=== PATIENT | male | born 1950 | race Caucasian/White ===

== ENCOUNTER → 2018-07-03 | Outpatient (CLI) | payer MEDICARE | END | disposition home or self-care (01) | LOC: LABWHC1 15:48 | PROVIDERS: ATTEND Internal Medicine Critical Care Medicine | DX: J45.909 Unspecified asthma, uncomplicated (principal) | CPT/HCPCS: 36415; 82785; 85008 ==

== ENCOUNTER 2020-09-11 08:36 | Day surgery (SDC) | payer MEDICARE ==
[~2020-09-11 08:36] MED LIST: LACTATED RINGERS 1,000 ML IV SCH
[2020-09-11] MEDS ORDERED: LIDOCAINE 1% (10MG/ML) FOR IV START INTRADERMA ONE (09:40)
[2020-09-11 09:43] VITALS: TEMP 97.1
[2020-09-11] MEDS ORDERED: PROPOFOL 10 MG/ML 20 ML VIAL IV ONE (09:51)
[2020-09-11] MEDS ORDERED: LIDOCAINE 1% INJ 10MG/ML (20 ML MDV) ONE (09:51)
--- NOTE | 2020-09-11 10:34 | P.PCN ---
Date of Procedure: 09/11/20 Description of Procedure: Brief history: Patient is a pleasant 70-year-old female presenting for outpatient esophagogastroduodenoscopy for evaluation of cirrhosis of the liver and colonoscopy for screening for malignant neoplasm of the colon. Patient has a history of obesity and hypertriglyceridemia. Computed tomography scan from 08/23/19 showed a cirrhotic appearing liver with gastroesophageal varices. He has no prior EGD or colonoscopy. He had no prior history of cirrhosis and full liver serologies were ordered for further evaluation and is pending. Procedure performed: Esophagogastroduodenoscopy with biopsy Colonoscopy with polypectomy Estimated blood loss: Minimal. Preoperative diagnosis: Cirrhosis of the liver, screening for malignant neoplasm in the colon, no prior endoscopic evaluation Anesthesia: MAC Procedure: Or esophageal varices noted After informed consent was obtained from the patient was brought into the endoscopy unit and IV sedation was administered by anesthesia under continuous monitoring. Initially upper endoscopy was done. The Olympus GF 190 video endoscope was inserted into the mouth and esophagus intubated without any difficulty and was gradually advanced into the stomach and duodenum and carefully examined. The bulb and second part of the duodenum appeared normal, with biopsy. The scope was then withdrawn into the stomach adequately insufflated with air and upon careful examination the antrum and body, cardia and fundus appeared normal, except for some mild punctate erythema throughout the stomach consistent with mild portal hypertensive gastropathy, with biopsies of the antrum and body to. In addition in the fundus 2 columns of large varices were seen, without high risk stigmata. The scope was then withdrawn into the esophagus. The GE junction was located at 40 cm to the incisors. It appeared regular with no erythema erosions or ulcerations. Rest of the esophagus appeared normal. Patient tolerated the procedure well. At this time the patient continued to remain sedation. Initial digital rectal examination was normal. Olympus CF 190 video colonoscope was then inserted into the rectum and gradually advanced to the cecum without any difficulty. Careful examination was performed as the scope was gradually being withdrawn. The prep was excellent. The cecum, ascending colon, transverse colon, descending colon, sigmoid colon and rectum appeared normal, except for a flat 13 mm tubulovillous appearing ascending colon polyp removed with cold snare polypectomy. A few scattered diverticula were noted in the sigmoid colon. Retroflexion was performed in the rectum and no lesions were noted, with moderate internal hemorrhoids seen. Patient tolerated the procedure well. Impression: 1. Mild portal hypertensive gastropathy. Isolated gastric varices 1, with 2 columns of varices noted in the fundus of the stomach without any stigmata. Biopsies of the duodenum, antrum and body. 2. Large flat tubulovillous appearing ascending colon polyp removed with cold snare. Mild sigmoid diverticulosis. Internal hemorrhoids. Recommendations: Findings of this examination were discussed with the patient as well as His family. Okay to resume diet. Okay to resume medications. Await pathology from biopsies and polypectomy. Recommend repeat colonoscopy in 3 years for large polyp, pending pathology from polypectomy. Recommend referral to a tertiary center for evaluation of gastric varices and possible intervention BRTO versus TIPS versus endoscopic as per their discretion, with referral sent [facility] today.
[2020-09-11 10:46] VITALS: RESP 16
[2020-09-11 10:55] VITALS: BP 131/81; PULSE 86
== END 2020-09-11 11:22 | disposition home or self-care (01) ==
LOC: ORWHC2ENDO 08:36
PROVIDERS: ATTEND Internal Medicine
DX: Z12.11 Encounter for screening for malignant neoplasm of colon (principal); D12.2 Benign neoplasm of ascending colon; K29.80 Duodenitis without bleeding; D72.820 Lymphocytosis (symptomatic); K64.8 Other hemorrhoids; K29.50 Unspecified chronic gastritis without bleeding; K57.30 Diverticulosis of large intestine without perforation or abscess without bleeding; I86.4 Gastric varices; E78.1 Pure hyperglyceridemia; E66.9 Obesity, unspecified; Z68.34 Body mass index [BMI] 34.0-34.9, adult; Z98.890 Other specified postprocedural states; J45.909 Unspecified asthma, uncomplicated; M19.90 Unspecified osteoarthritis, unspecified site; Z79.899 Other long term (current) drug therapy; Z88.6 Allergy status to analgesic agent
CPT/HCPCS: 88305; 45385; 43239; J2001; J2704

== ENCOUNTER → 2020-09-12 | Outpatient (CLI) | payer MEDICARE ==
--- NOTE | 2020-09-13 03:13 | MR ---
EXAMINATION TYPE: MR brain wo/w con DATE OF EXAM: 09/12/2020 COMPARISON: None HISTORY: Pressure in head, bitemporal hemianopsia. CONTRAST: Standard multiplanar, multisequence MRI departmental protocol utilizing 11.5 mL intravenous Gadavist gadolinium contrast. There is some cerebral cortical atrophy. There is no mass effect nor midline shift. There is no sign of intracranial hemorrhage. Ventricles are slightly enlarged. The brainstem is intact. Corpus callosu m is intact. Sella turcica appears normal. There is some cerebellar atrophy. Diffusion images show no evidence of an acute infarct. There is mildly dilated optic nerve sheaths with fluid. The globes are symmetric. There is no evidenc e of orbital mass. Contrast images show normal enhancement of the venous sinuses. There is no pathologic enhancement. Th e optic chiasm appears normal. Pituitary stalk is in the midline. IMPRESSION: Cerebral atrophy. Mild hydrocephalus. Increased optic nerve sheath fluid consistent with increased in tracranial pressure.
== END | disposition home or self-care (01) ==
LOC: RADMRIMAIN 16:13
PROVIDERS: ATTEND Family Medicine
DX: G31.9 Degenerative disease of nervous system, unspecified (principal); G91.9 Hydrocephalus, unspecified
CPT/HCPCS: 70553; A9585

== ENCOUNTER 2021-05-01 01:39 | Observation (INO) | payer MEDICARE ==
[2021-05-01 03:09] LABS: Basophils % (A) 1 %; Eosinophils # (A) 0.2 k/uL (0-0.7); Eosinophils % (A) 5 %; HCT 23.4 % (39.0-53.0); HGB 7.5 gm/dL (13.0-17.5); Hypochromasia Marked; Lymphocytes % (A) 28 %; MCH 30.2 pg (25.0-35.0); MCHC 31.9 g/dL (31.0-37.0); MCV 94.8 fL (80.0-100.0); Mean Platelet Volume 9.8; Monocytes # (A) 0.2 k/uL (0-1.0); Monocytes % (A) 6 %; Neutrophils % (A) 57 %; Poikilocytosis Slight; RBC 2.47 m/uL (4.30-5.90); RDW 14.5 % (11.5-15.5); WBC 3.5 k/uL (3.8-10.6)
[2021-05-01 03:11] LABS: ALT 35 U/L (4-49); AST 83 U/L (17-59); African American GFR (CKD) >90 (>60 ml/min/1.73 sqM); Albumin 2.4 g/dL (3.5-5.0); Alkaline Phosphatase 128 U/L (38-126); Anion Gap 3 mmol/L; Blood Urea Nitrogen 13 mg/dL (9-20); Calcium 7.6 mg/dL (8.4-10.2); Carbon Dioxide 24 mmol/L (22-30); Chloride 111 mmol/L (98-107); Glucose 93 mg/dL (74-99); Non-African American GFR(CKD) >90 (>60 ml/min/1.73 sqM); Potassium 3.8 mmol/L (3.5-5.1); Sodium 138 mmol/L (137-145); Total Bilirubin 1.7 mg/dL (0.2-1.3); Total Protein 5.6 g/dL (6.3-8.2)
[2021-05-01 03:12] LABS: INR 1.8 (<1.2); Partial Thromboplastin Time 33.6 sec (22.0-30.0); Prothrombin Time 17.8 sec (9.0-12.0)
[2021-05-01 04:23] LABS: Anisocytosis (M) Present
[2021-05-01] MEDS ORDERED: NALOXONE 0.4 MG/ML 1 ML VIAL IV PRN (04:23)
[2021-05-01 04:24] LABS: Platelet Count 99 k/uL (150-450); Polychromasia Present
[2021-05-01] MEDS ORDERED: LACTULOSE 20 GM/30 ML CUP PO ONE (04:26)
[2021-05-01] MEDS: SODIUM CHLORIDE 0.9% 1,000 ML IV SCH ×2 (05:19→12:53)
--- NOTE | 2021-05-01 07:38 | ED ---
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 Patient had gone to [facility] last night due to having generalized weakness, decreased appetite and some nausea. Patient there was found to have low hemoglobin. They felt that the patient needed to be admitted to have GI consultation and so the transfer the patient here the patient's recent history is notable for having some GI bleeding last week. He had gone to the hospital was found to have hemoglobin 7.7. He was then transferred to [facility], as that facility has a liver transplant team and they wanted him to get onto the transplant list. While the patient was there he had upper and lower endoscopy which did not reveal any bleeding. Patient had gone home on April 28 and then over the course the past day he was feeling increased fatigue and having nausea. MD complaint: other -: days(s) Radiation: none Severity scale (1-10): 0 Quality: cramping Consistency: intermittent Improves with: none Worsens with: none Context: history of GI bleed, liver disease Associated Symptoms: nausea - Related Data Home Medications Medication Instructions Recorded Confirmed Albuterol Inhaler [Ventolin Hfa 1 puff INHALATION DIRECTED PRN 09/10/20 09/10/20 Inhaler] Cholecalciferol [Vitamin D3 (25 1 tab PO DAILY 09/10/20 09/10/20 Mcg = 1000 Iu)] Cyanocobalamin (Vitamin B-12) 1 tab PO DAILY 09/10/20 09/10/20 [Vitamin B-12] Montelukast [Singulair] 10 mg PO HS 09/10/20 09/10/20 Frank[place]-3 Fatty Acids [Frankfort-3] 1 cap PO DAILY 09/10/20 09/10/20 Pantoprazole [Protonix] 40 mg PO QAM 09/10/20 09/10/20 Sucralfate [Carafate] 1 gm PO HS 09/10/20 09/10/20 traZODone HCL [TraZODone HCl] 100 mg PO HS 07/14/21 07/14/21 Allergies Allergy/AdvReac Type Severity Reaction Status Date / Time ibuprofen Allergy Dyspnea Verified 05/01/21 02:10 Review of Systems ROS Statement: Those systems with pertinent positive or pertinent negative responses have been documented in the HPI. ROS Other: All systems not noted in ROS Statement are negative. Constitutional: Denies: fever, chills, weakness Respiratory: Denies: cough, dyspnea Cardiovascular: Reports: edema. Denies: chest pain, palpitations, syncope Gastrointestinal: Reports: nausea. Denies: abdominal pain, vomiting, diarrhea, constipation, melena, hematochezia Genitourinary: Denies: dysuria, hematuria Musculoskeletal: Denies: back pain Skin: Denies: rash Neurological: Denies: headache, weakness, numbness Past Medical History Past Medical History: Hyperlipidemia, Liver Disease Additional Past Medical History / Comment(s): nonalcoholic liver cirrhosis, hydrocephalus History of Any Multi-Drug Resistant Organisms: None Reported Past Surgical History: Hernia Repair, Orthopedic Surgery Additional Past Surgical History / Comment(s): neck surgery Past Anesthesia/Blood Transfusion Reactions: No Reported Reaction Past Psychological History: No Psychological Hx Reported Smoking Status: Never smoker Past Alcohol Use History: None Reported Past Drug Use History: None Reported General Exam Limitations: physical limitation General appearance: alert, in no apparent distress Head exam: Present: atraumatic, normocephalic Eye exam: Present: normal appearance. Absent: scleral icterus, conjunctival injection ENT exam: Present: normal oropharynx Neck exam: Present: normal inspection Respiratory exam: Present: normal lung sounds bilaterally. Absent: respiratory distress, wheezes, rales, rhonchi, stridor Cardiovascular Exam: Present: regular rate, normal rhythm, normal heart sounds. Absent: systolic murmur, diastolic murmur, rubs, gallop GI/Abdominal exam: Present: soft. Absent: distended, tenderness, guarding, rebound, rigid, organomegaly, mass Extremities exam: Present: normal inspection, normal capillary refill. Absent: pedal edema, calf tenderness Back exam: Present: normal inspection. Absent: CVA tenderness (R), CVA tenderness (L) Neurological exam: Present: alert Skin exam: Present: warm, dry, intact, pallor. Absent: rash Course Vital Signs 05/01/21 05/01/21 05/01/21 01:39 02:10 03:10 Temperature 99.4 F Pulse Rate 86 75 81 Respiratory 18 18 18 Rate Blood Pressure 107/72 112/74 104/67 O2 Sat by Pulse 96 Oximetry 05/01/21 04:00 Temperature Pulse Rate 70 Respiratory 18 Rate Blood Pressure 98/60 O2 Sat by Pulse Oximetry Medical Decision Making - Medical Decision Making Patient is 70-year-old man with weakness and fatigue sent here basically to be seen by Dr. Vo who he has seen in the past and he follows with regarding GI bleed and also liver disease. At the other facility, patient's hemoglobin 7.8. Recheck here is essentially unchanged at 7.5. He is not having any symptoms currently other than fatigue. In addition the patient has some hyperammonemia. He is reported to be taking lactulose but still having elevated ammonia. I discussed with patient transferred to [facility] refusing to go there stating that they didn't seem to have much interest in his case and he felt that his care was better here. We'll admit patient to have GI consultation, serial hemoglobins, and additional lactulose for the hyperammonemia. - Lab Data Result diagrams: 05/01/21 02:36 05/01/21 02:35 Lab Results 05/01/21 05/01/21 05/01/21 Range/Units 02:35 02:35 02:35 WBC (3.8-10.6) k/uL RBC (4.30-5.90) m/uL Hgb (13.0-17.5) gm/dL Hct (39.0-53.0) % MCV (80.0-100.0) fL MCH (25.0-35.0) pg MCHC (31.0-37.0) g/dL RDW (11.5-15.5) % Plt Count (150-450) k/uL MPV Neutrophils % % Lymphocytes % % Monocytes % % Eosinophils % % Basophils % % Neutrophils # (1.3-7.7) k/uL Lymphocytes # (1.0-4.8) k/uL Monocytes # (0-1.0) k/uL Eosinophils # (0-0.7) k/uL Basophils # (0-0.2) k/uL Manual Slide Review Polychromasia Hypochromasia Poikilocytosis Anisocytosis (manual) PT 17.8 H (9.0-12.0) sec INR 1.8 H (<1.2) APTT 33.6 H (22.0-30.0) sec Sodium 138 (137-145) mmol/L Potassium 3.8 (3.5-5.1) mmol/L Chloride 111 H (98-107) mmol/L Carbon Dioxide 24 (22-30) mmol/L Anion Gap 3 mmol/L BUN 13 (9-20) mg/dL Creatinine 0.51 L (0.66-1.25) mg/dL Est GFR (CKD-EPI)AfAm >90 (>60 ml/min/1.73 sqM) Est GFR (CKD-EPI)NonAf >90 (>60 ml/min/1.73 sqM) Glucose 93 (74-99) mg/dL Calcium 7.6 L (8.4-10.2) mg/dL Total Bilirubin 1.7 H (0.2-1.3) mg/dL AST 83 H (17-59) U/L ALT 35 (4-49) U/L Alkaline Phosphatase 128 H (38-126) U/L Ammonia 191 H (<30) umol/L Total Protein 5.6 L (6.3-8.2) g/dL Albumin 2.4 L (3.5-5.0) g/dL Blood Type Blood Type Confirm Blood Type Recheck Bld Type Recheck Status Antibody Screen Spec Expiration Date 05/01/21 05/01/21 05/01/21 Range/Units 02:36 03:55 04:00 WBC 3.5 L (3.8-10.6) k/uL RBC 2.47 L (4.30-5.90) m/uL Hgb 7.5 L (13.0-17.5) gm/dL Hct 23.4 L (39.0-53.0) % MCV 94.8 (80.0-100.0) fL MCH 30.2 (25.0-35.0) pg MCHC 31.9 (31.0-37.0) g/dL RDW 14.5 (11.5-15.5) % Plt Count 99 L (150-450) k/uL MPV 9.8 Neutrophils % 57 % Lymphocytes % 28 % Monocytes % 6 % Eosinophils % 5 % Basophils % 1 % Neutrophils # 2.0 (1.3-7.7) k/uL Lymphocytes # 1.0 (1.0-4.8) k/uL Monocytes # 0.2 (0-1.0) k/uL Eosinophils # 0.2 (0-0.7) k/uL Basophils # 0.0 (0-0.2) k/uL Manual Slide Review Performed Polychromasia Present Hypochromasia Marked Poikilocytosis Slight Anisocytosis (manual) Present PT (9.0-12.0) sec INR (<1.2) APTT (22.0-30.0) sec Sodium (137-145) mmol/L Potassium (3.5-5.1) mmol/L Chloride (98-107) mmol/L Carbon Dioxide (22-30) mmol/L Anion Gap mmol/L BUN (9-20) mg/dL Creatinine (0.66-1.25) mg/dL Est GFR (CKD-EPI)AfAm (>60 ml/min/1.73 sqM) Est GFR (CKD-EPI)NonAf (>60 ml/min/1.73 sqM) Glucose (74-99) mg/dL Calcium (8.4-10.2) mg/dL Total Bilirubin (0.2-1.3) mg/dL AST (17-59) U/L ALT (4-49) U/L Alkaline Phosphatase (38-126) U/L Ammonia (<30) umol/L Total Protein (6.3-8.2) g/dL Albumin (3.5-5.0) g/dL Blood Type B Positive Blood Type Confirm B Positive Blood Type Recheck No Previous Record Bld Type Recheck Status CABO Indicated Antibody Screen NEGATIVE Spec Expiration Date 05/04/20212354 Disposition Clinical Impression: Anemia, Hyperammonemia Disposition: ADMITTED IP TO THIS [facility] Condition: Poor Is patient prescribed a controlled substance at d/c from ED?: No
--- NOTE | 2021-05-01 08:09 | P.HPIM ---
<Kulwinder Lipscomb - Last Filed: 05/01/21 12:03> History of Present Illness H&P Date: 05/01/21 History of Presenting Illness: Patient is a very pleasant 70-year-old male with a past medical history of VELAZQUEZ with esophageal and gastric varices. He reports he is under care of hepatolog ist Dr. Dunn at [facility]. Patient presented to [facility]'s emergency department on 04/30/22 with a chief complaint of dizziness, lightheadedness, and hypotension. Patient underwent full evaluation in the emergency department with an EKG which revealed normal sinus rhythm 70 bpm with no noted T-wave or ST abnormalities. Chest x-ray which revealed bibasilar atelectasis and elevation of left hemidiaphragm unchanged from previous examination. Labs revealing pancytopenia with WBC count of 4.3, hemoglobin 7.8, and platelet count of 116. Elevated liver enzymes with ALT 39, AST 87, total bili of 1.8, and alkaline phosphatase 131. Patient also with elevated ammonia levels at 139. Fecal occult obtained and was positive. Patient was transferred to our emergency department for GI bleed and evaluation by gastroenterology. Patient reports that he has had dark-colored stools for the past couple weeks accompanied by intermittent epigastric discomfort/pains. Patient reports he underwent a colonoscopy and upper endoscopy on 04/25/21 at [facility], patient states he was told the results of this showed no active bleeding and he was told that the dark stools were likely secondary to his gastric varices but the bleeding had stopped without intervention. Patient reports currently he feels weak and fatigued but states dizziness and epigastric pain is completely subsided. He denies having any headache, fevers, chills, chest pain, palpitations, shortness of breath, nausea, vomiting, or experiencing increased swelling/weakness/numbness in his extremities. Upon arrival to our emergency department, repeat labs revealed pancytopenia with WBC count of 3.5, hemoglobin of 7.5, and platelet count of 99. Coags also elevated with PT of 17.8, INR 1.8, and PTT 33.6. Liver enzymes remain elevated with total bili of 1.7, AST of 83, ALT 35, alkaline phosphatase of 128. Ammonia also remains elevated at 191. Patient was given lactulose 30 g orally 1 dose and admitted under our services with consult to GI. Review of systems: Pertinent positives and negatives as discussed in HPI, a complete review of systems was performed and all other systems are negative. Physical exam: Vital signs reviewed and stable. General: Nontoxic, no distress and appears stated age. Derm: Skin warm and dry, normal coloration for ethnicity. Head: Atraumatic, normocephalic and symmetric. Eyes: EOMs intact, no lid lag, and anicteric sclera Mouth: no lip lesions, mucus membranes moist Cardiovascular: regular rate and rhythm with normal S1S2, no murmur, positive posterior tibial pulses bilaterally, and cap refill < 2 seconds. Lungs: Respirations even, regular, and unlabored on room air. Lungs CTA bilaterally, no rhonchi, no rales, no wheezing, and no accessory muscle usage. Abdominal: Obese abdomen soft, nontender to palpation Ext: ROM intact. No gross muscle atrophy, no edema, no contractures Neuro: Speech clear, face symmetrical and CN II-XII grossly intact with no noted focal neuro deficits Psych: Alert and oriented to person, place, time, and situation. Appropriate and pleasant affect. Assessment and Plan of Care: GI bleed with reports of melena in patient with known gastric varices resulting from cirrhosis Anemia, acute versus chronic no baseline labs for comparison VELAZQUEZ Hyperammonemia Elevated INR Transaminitis Hyperbilirubinemia -CBC every 6 hours, transfuse as needed for hemoglobin less than 6.5. -GI consult -NPO pending further clearance by GI. -Gentle hydration while nothing by mouth -Protonix 40 mg daily -Continue lactulose 20 gm every 6 hours and rifaximin 550 mg every 12 hours. -Request for records sent to [facility] for recently completed EGD and colonoscopy. -DVT prophylaxis with SCDs Pancytopenia -Likely chronic secondary to VELAZQUEZ, unknown baseline labs. -We will continue to monitor closely with repeat labs. -DVT prophylaxis with SCDs The patient is admitted with an anticipated greater than 2 midnight stay for evaluation of GI bleed CODE STATUS: Full code DVT prophylaxis: SCDs Discussed with: patient and RN Anticipated discharge date: clinical course to determine Anticipated discharge place: Home A total of 50 minutes was spent on the care of this complex patient more than 50% of the time was spent in counseling and care coordination. Past Medical History Past Medical History: Hyperlipidemia, Liver Disease Additional Past Medical History / Comment(s): nonalcoholic liver cirrhosis, hydrocephalus History of Any Multi-Drug Resistant Organisms: None Reported Past Surgical History: Hernia Repair, Orthopedic Surgery Additional Past Surgical History / Comment(s): neck surgery Past Anesthesia/Blood Transfusion Reactions: No Reported Reaction Past Psychological History: No Psychological Hx Reported Smoking Status: Never smoker Past Alcohol Use History: None Reported Past Drug Use History: None Reported Medications and Allergies Home Medications Medication Instructions Recorded Confirmed Type Albuterol Inhaler [Ventolin Hfa 2 puff INHALATION RT-QID PRN 09/10/20 05/01/21 History Inhaler] Cholecalciferol [Vitamin D3 (25 25 mcg PO DAILY 09/10/20 05/01/21 History Mcg = 1000 Iu)] Cyanocobalamin (Vitamin B-12) 1,000 mcg PO DAILY 09/10/20 05/01/21 History [Vitamin B-12] Montelukast [Singulair] 10 mg PO HS 09/10/20 05/01/21 History Pantoprazole [Protonix] 40 mg PO DAILY 09/10/20 05/01/21 History Lactulose 20 gm PO QID 05/01/21 05/01/21 History Rifaximin [Xifaxan] 550 mg PO BID 05/01/21 05/01/21 History Torsemide [Demadex] 5 mg PO BID 05/01/21 05/01/21 History Allergies Allergy/AdvReac Type Severity Reaction Status Date / Time ibuprofen Allergy Severe Anaphylaxis Verified 05/01/21 09:48 garlic Allergy Anaphylaxis Verified 05/01/21 09:48 Physical Exam Vitals: Vital Signs Temp Pulse Pulse Resp BP BP Pulse Ox 05/01/21 07:50 97.5 F L 81 16 102/65 97 05/01/21 07:00 98.4 F 79 18 112/67 97 05/01/21 06:01 18 05/01/21 05:37 97.7 F 81 18 107/68 96 05/01/21 05:28 98.2 F 72 18 101/63 95 05/01/21 04:00 70 18 98/60 05/01/21 03:10 81 18 104/67 05/01/21 02:10 75 18 112/74 05/01/21 01:39 99.4 F 86 18 107/72 96 Intake and Output 0305/01/21 05/01/21 22:59 06:59 14:59 Other: Voiding Method Toilet # Voids 0 Weight 92.986 kg Results CBC & Chem 7: 05/01/21 06:41 05/01/21 02:35 Labs: Abnormal Lab Results - Last 24 Hours (Table) 05/01/21 05/01/21 05/01/21 Range/Units 02:35 02:35 02:35 WBC (3.8-10.6) k/uL RBC (4.30-5.90) m/uL Hgb (13.0-17.5) gm/dL Hct (39.0-53.0) % Plt Count (150-450) k/uL PT 17.8 H (9.0-12.0) sec INR 1.8 H (<1.2) APTT 33.6 H (22.0-30.0) sec Chloride 111 H (98-107) mmol/L Creatinine 0.51 L (0.66-1.25) mg/dL Calcium 7.6 L (8.4-10.2) mg/dL Total Bilirubin 1.7 H (0.2-1.3) mg/dL AST 83 H (17-59) U/L Alkaline Phosphatase 128 H (38-126) U/L Ammonia 191 H (<30) umol/L Total Protein 5.6 L (6.3-8.2) g/dL Albumin 2.4 L (3.5-5.0) g/dL 05/01/21 Range/Units 02:36 WBC 3.5 L (3.8-10.6) k/uL RBC 2.47 L (4.30-5.90) m/uL Hgb 7.5 L (13.0-17.5) gm/dL Hct 23.4 L (39.0-53.0) % Plt Count 99 L (150-450) k/uL PT (9.0-12.0) sec INR (<1.2) APTT (22.0-30.0) sec Chloride (98-107) mmol/L Creatinine (0.66-1.25) mg/dL Calcium (8.4-10.2) mg/dL Total Bilirubin (0.2-1.3) mg/dL AST (17-59) U/L Alkaline Phosphatase (38-126) U/L Ammonia (<30) umol/L Total Protein (6.3-8.2) g/dL Albumin (3.5-5.0) g/dL Thrombosis Risk Factor Assmnt - Choose All That Apply Each Factor Represents 1 point: Obesity (BMI >25) Each Risk Factor Represents 2 Points: Age 61-74 years Thrombosis Risk Factor Assessment Total Risk Factor Score: 3 Thrombosis Risk Factor Assessment Level: Moderate Risk <Gonzalo Dominguez - Last Filed: 05/01/21 16:01> History of Present Illness I reviewed the documentation as provided by the RUFINA above, who is the original author of this note. I agree with the documented assessment and plan, with the following changes: None Physical Exam Osteopathic Statement: *. No significant issues noted on an osteopathic s tructural exam other than those noted in the History and Physical/Consult. Vitals: Vital Signs Temp Pulse Pulse Resp BP BP Pulse Ox 05/01/21 13:36 97.5 F L 81 17 110/71 96 05/01/21 09:26 97.5 F L 81 16 102/65 97 05/01/21 07:50 97.5 F L 81 16 102/65 97 05/01/21 07:00 98.4 F 79 18 112/67 97 05/01/21 06:01 18 05/01/21 05:37 97.7 F 81 18 107/68 96 05/01/21 05:28 98.2 F 72 18 101/63 95 05/01/21 04:00 70 18 98/60 05/01/21 03:10 81 18 104/67 05/01/21 02:10 75 18 112/74 05/01/21 01:39 99.4 F 86 18 107/72 96 Intake and Output 05/01/21 05/01/21 05/01/21 06:59 14:59 22:59 Intake Total 118 Balance 118 Intake: Oral 118 Other: Voiding Method Toilet # Voids 0 3 # Bowel Movements 1 Weight 92.986 kg Results CBC & Chem 7: 05/01/21 14:59 05/01/21 02:35 Labs: Abnormal Lab Results - Last 24 Hours (Table) 05/01/21 05/01/21 05/01/21 Range/Units 02:35 02:35 02:35 WBC (3.8-10.6) k/uL RBC (4.30-5.90) m/uL Hgb (13.0-17.5) gm/dL Hct (39.0-53.0) % MCV (80.0-97.0) fL MCHC (32.0-37.0) g/dL RDW (11.5-14.5) % Plt Count (150-450) k/uL PT 17.8 H (9.0-12.0) sec INR 1.8 H (<1.2) APTT 33.6 H (22.0-30.0) sec Chloride 111 H (98-107) mmol/L Creatinine 0.51 L (0.66-1.25) mg/dL Calcium 7.6 L (8.4-10.2) mg/dL Total Bilirubin 1.7 H (0.2-1.3) mg/dL AST 83 H (17-59) U/L Alkaline Phosphatase 128 H (38-126) U/L Ammonia 191 H (<30) umol/L Total Protein 5.6 L (6.3-8.2) g/dL Albumin 2.4 L (3.5-5.0) g/dL 05/01/21 05/01/21 05/01/21 Range/Units 02:36 06:41 14:59 WBC 3.5 L 3.97 L 3.2 L (3.8-10.6) k/uL RBC 2.47 L 2.63 L 2.56 L (4.30-5.90) m/uL Hgb 7.5 L 7.6 L 7.6 L (13.0-17.5) gm/dL Hct 23.4 L 25.9 L 24.6 L (39.0-53.0) % MCV 98.5 H (80.0-97.0) fL MCHC 29.3 L (32.0-37.0) g/dL RDW 14.6 H (11.5-14.5) % Plt Count 99 L 117 L 100 L (150-450) k/uL PT (9.0-12.0) sec INR (<1.2) APTT (22.0-30.0) sec Chloride (98-107) mmol/L Creatinine (0.66-1.25) mg/dL Calcium (8.4-10.2) mg/dL Total Bilirubin (0.2-1.3) mg/dL AST (17-59) U/L Alkaline Phosphatase (38-126) U/L Ammonia (<30) umol/L Total Protein (6.3-8.2) g/dL Albumin (3.5-5.0) g/dL
[2021-05-01] MEDS: PANTOPRAZOLE 40 MG/10 ML VIAL IV SCH (09:18)
--- NOTE | 2021-05-01 10:52 | P.CONS ---
History of Present Illness - Reason for Consult Consult date: 05/01/21 Anemia Requesting physician: Jesús Herr - Chief Complaint Weakness - History of Present Illness This is 70-year-old male who was a transfer from [facility] for ge neralized weakness and anemia. He has has a history of VELAZQUEZ who had followed with Dr. Huerta. He is now following with [facility] transplant team Dr. Dunn. He states that he had been having black stools a little over a week ago and feeling fatigued and weak, he went down to [facility] and had an upper and lower endoscopy on Tuesday. He states that they did find varices however colonoscopy was normal. He is unsure if they treated the varices with clips. He states he has not had any further black or dark stools since being discharged on Tuesday. He denies any anticoagulation. However he went to his PCPs office for outpatient blood work and then went home and was feeling increased weakness and fatigue. He states that he took his blood pressure at home and it was low so he went to [facility] for further evaluation. Blood work at that time had shown a hemoglobin of 7.8 with a platelet count of 116, he also had an elevated ammonia of 139. The patient states that yesterday he only had a very small bowel movement despite taking his lactulose. He is also on Xifaxan. He continues to state that he has not had any black stool, he has no abdominal pain, nausea or vomiting. He is alert and oriented 3. Reports from [facility] received patient underwent EGD and colonoscopy on 04/25/2021. Colonoscopy had findings of scattered diverticulosis and internal hemorrhoids. EGD showed normal esophagus, type I isolated gastric varices located in the fundus without any stigmata for bleeding, portal hypertensive gastropathy, gastric antral vascular ectasia without bleeding. Review of Systems REVIEW OF SYSTEMS: CARDIOPULMONARY: No chest pain. Shortness of breath with exertion. Gastrointestinal: No abdominal pain. No nausea or vomiting. No hematemesis, coffee-ground emesis. No rectal bleeding, or melena. GENITOURINARY: No dysuria or hematuria. MUSCULOSKELETAL: Reports normal range of motion., Joint pain. SKIN: No rashes. No jaundice. ENDOCRINE: No chills, fevers. No excessive weight gain or loss. No polydipsia or polyuria. PSYCHIATRIC: Unremarkable. NEUROLOGY: No change in mental status. Denies dizziness, headache. ENT: Vision unremarkable. CONSTITUTIONAL: No recent weight loss. No fever, chills, night sweats. Increased weakness and fatigue Past Medical History Past Medical History: Hyperlipidemia, Liver Disease Additional Past Medical History / Comment(s): nonalcoholic liver cirrhosis, hydrocephalus History of Any Multi-Drug Resistant Organisms: None Reported Past Surgical History: Hernia Repair, Orthopedic Surgery Additional Past Surgical History / Comment(s): neck surgery Past Anesthesia/Blood Transfusion Reactions: No Reported Reaction Past Psychological History: No Psychological Hx Reported Smoking Status: Never smoker Past Alcohol Use History: None Reported Past Drug Use History: None Reported Medications and Allergies Home Medications Medication Instructions Recorded Confirmed Type Albuterol Inhaler [Ventolin Hfa 2 puff INHALATION RT-QID PRN 09/10/20 05/01/21 History Inhaler] Cholecalciferol [Vitamin D3 (25 25 mcg PO DAILY 09/10/20 05/01/21 History Mcg = 1000 Iu)] Cyanocobalamin (Vitamin B-12) 1,000 mcg PO DAILY 09/10/20 05/01/21 History [Vitamin B-12] Montelukast [Singulair] 10 mg PO HS 09/10/20 05/01/21 History Pantoprazole [Protonix] 40 mg PO DAILY 09/10/20 05/01/21 History Lactulose 20 gm PO QID 05/01/21 05/01/21 History Rifaximin [Xifaxan] 550 mg PO BID 05/01/21 05/01/21 History Torsemide [Demadex] 5 mg PO BID 05/01/21 05/01/21 History Allergies Allergy/AdvReac Type Severity Reaction Status Date / Time ibuprofen Allergy Severe Anaphylaxis Verified 05/01/21 09:48 garlic Allergy Anaphylaxis Verified 05/01/21 09:48 Physical Exam Vitals: Vital Signs Temp Pulse Pulse Resp BP BP Pulse Ox 05/01/21 07:50 97.5 F L 81 16 102/65 97 05/01/21 07:00 98.4 F 79 18 112/67 97 05/01/21 06:01 18 05/01/21 05:37 97.7 F 81 18 107/68 96 05/01/21 05:28 98.2 F 72 18 101/63 95 05/01/21 04:00 70 18 98/60 05/01/21 03:10 81 18 104/67 05/01/21 02:10 75 18 112/74 05/01/21 01:39 99.4 F 86 18 107/72 96 Intake and Output 04/30/21 05/01/21 05/01/21 22:59 06:59 14:59 Other: Voiding Method Toilet # Voids 0 Weight 92.986 kg General appearance: The patient is alert, oriented, appears in no acute distress. HET: Head is normocephalic and atraumatic. Conjunctiva pink. Sclera anicteric. Neck: Supple without lymphadenopathy. Trachea midline. Heart: S1 S2. Regular rate and rhythm. Lungs: Clear to auscultation. Abdomen: Soft, nontender, nondistended with bowel sounds. No guarding or ri gidity. Skin: No rashes. No jaundice. Extremities: Normal skin color and turgor. No pedal edema. Neurological: No focal deficits. Alert and oriented x3. Results CBC & Chem 7: 05/01/21 06:41 05/01/21 02:35 Labs: Abnormal Lab Results - Last 24 Hours (Table) 05/01/21 05/01/21 05/01/21 Range/Units 02:35 02:35 02:35 WBC (3.8-10.6) k/uL RBC (4.30-5.90) m/uL Hgb (13.0-17.5) gm/dL Hct (39.0-53.0) % Plt Count (150-450) k/uL PT 17.8 H (9.0-12.0) sec INR 1.8 H (<1.2) APTT 33.6 H (22.0-30.0) sec Chloride 111 H (98-107) mmol/L Creatinine 0.51 L (0.66-1.25) mg/dL Calcium 7.6 L (8.4-10.2) mg/dL Total Bilirubin 1.7 H (0.2-1.3) mg/dL AST 83 H (17-59) U/L Alkaline Phosphatase 128 H (38-126) U/L Ammonia 191 H (<30) umol/L Total Protein 5.6 L (6.3-8.2) g/dL Albumin 2.4 L (3.5-5.0) g/dL 05/01/21 Range/Units 02:36 WBC 3.5 L (3.8-10.6) k/uL RBC 2.47 L (4.30-5.90) m/uL Hgb 7.5 L (13.0-17.5) gm/dL Hct 23.4 L (39.0-53.0) % Plt Count 99 L (150-450) k/uL PT (9.0-12.0) sec INR (<1.2) APTT (22.0-30.0) sec Chloride (98-107) mmol/L Creatinine (0.66-1.25) mg/dL Calcium (8.4-10.2) mg/dL Total Bilirubin (0.2-1.3) mg/dL AST (17-59) U/L Alkaline Phosphatase (38-126) U/L Ammonia (<30) umol/L Total Protein (6.3-8.2) g/dL Albumin (3.5-5.0) g/dL Assessment and Plan (1) Anemia Narrative/Plan: This is a pleasant 70-year-old male who follows with gastroenterology for nonalcoholic fatty liver. He is also now following with [facility] transplant team Dr. Dunn. Patient came in as a transfer from [facility] for weakness and fatigue and was found to be anemic. He states he was recently at [facility] last week discharged on Tuesday. He states on April 19 he underwent EGD and colonoscopy. He states the EGD was significant for esophageal varices, however he was unsure of the clipped. Colonoscopy was normal. He had a follow-up appointment with his PCP and had complaints of weakness and fatigue and underwent blood work. He was found to be anemic. Patient went to [facility] for further evaluation. He has no reported black stools since prior to his eye EGD and colonoscopy. Prior to this last EGD and colonoscopy he did undergo an EGD and colonoscopy on 09/12/[address] Huerta. EGD had findings of mild portal hypertension and gastric varices with 2 columns of varices on the fundus of the stomach without stigmata. Colonoscopy was significant for polypectomy, sigmoid diverticulosis and internal hemorrhoids. WBC 3.5 hemoglobin 7.5 hematocrit 23 platelet count 99,000 pain or 1.8 total bilirubin 1.7 AST 83 ALT 35 alkaline phosphatase 128 ammonia 191. At this time we are requesting records from [facility]. Patient is tentatively scheduled for EGD this afternoon. 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 Continue symptomatic and supportive care 2. Keep nothing by mouth at this time 3. Continue lactulose and Xifaxan 4. Daily CBC, transfuse per protocol 5. Anemia workup ordered 6. Please obtain records from [facility] for last admission, including EGD and colonoscopy on 04/25/2021 7. Patient tentatively scheduled for EGD this afternoonn. Thank you for allowing us to participate in the care of the patient, the GI service will sign off, gastroenterology will not be available at the hospital this weekend and through next week. If further evaluation by gastroenterology is required the patient will need transfer as per the primary team's discretion. Dr. Sourav Vo I agree with the dictator's note, documented as a scribe by Eleni Bruce.
[2021-05-01 11:18] LABS: HCT 25.9 % (39.6-50.0); HGB 7.6 g/dL (13.0-17.0); MCH 28.9 pg (27.0-32.0); MCHC 29.3 g/dL (32.0-37.0); MCV 98.5 fL (80.0-97.0); Mean Platelet Volume 11.9 fL (9.5-12.2); NRBC Per 100 WBC 0 /100 WBCS (0.0-0.0); Platelet Count 117 X 10*3/uL (140-440); RBC 2.63 X 10*6/uL (4.40-5.60); RDW 14.6 % (11.5-14.5); WBC 3.97 X 10*3/uL (4.50-10.00)
[2021-05-01] MEDS ORDERED: ALBUTEROL NEBULIZED 2.5 MG/3 ML INHALATION PRN (12:17)
[2021-05-01] MEDS: LACTULOSE 20 GM/30 ML CUP PO SCH ×3 (12:49→19:33)
[2021-05-01] MEDS: RIFAXIMIN 550 MG TABLET PO SCH ×2 (12:50→19:33)
[2021-05-01 15:16] LABS: HCT 24.6 % (39.0-53.0); HGB 7.6 gm/dL (13.0-17.5); Hypochromasia Marked; MCH 29.8 pg (25.0-35.0); Mean Platelet Volume 9.3; Platelet Count 100 k/uL (150-450); Poikilocytosis Moderate; RBC 2.56 m/uL (4.30-5.90); RDW 14.9 % (11.5-15.5); WBC 3.2 k/uL (3.8-10.6)
[2021-05-01] MEDS: MONTELUKAST 10 MG TAB PO SCH (19:33)
[2021-05-01 21:05] LABS: HCT 23.5 % (39.0-53.0); HGB 7.4 gm/dL (13.0-17.5); Hypochromasia Marked; MCH 30.2 pg (25.0-35.0); MCHC 31.5 g/dL (31.0-37.0); MCV 96.1 fL (80.0-100.0); Mean Platelet Volume 10.3; Platelet Count 104 k/uL (150-450); Poikilocytosis Slight; RBC 2.45 m/uL (4.30-5.90); RDW 14.9 % (11.5-15.5); WBC 3.9 k/uL (3.8-10.6)
[2021-05-02] MEDS: RIFAXIMIN 550 MG TABLET PO SCH ×2 (08:36→19:35)
[2021-05-02] MEDS: LACTULOSE 20 GM/30 ML CUP PO SCH ×4 (08:36→19:35)
[2021-05-02] MEDS: PANTOPRAZOLE 40 MG/10 ML VIAL IV SCH (08:37)
[2021-05-02] MEDS: CHOLECALCIFEROL 25 MCG (1000 IU) TABLET PO SCH (08:37)
[2021-05-02] MEDS: CYANOCOBALAMIN 500 MCG TAB PO SCH (08:37)
[2021-05-02 08:41] LABS: HCT 23.5 % (39.6-50.0); MCH 28.6 pg (27.0-32.0); MCHC 29.8 g/dL (32.0-37.0); MCV 95.9 fL (80.0-97.0); NRBC Per 100 WBC 0 /100 WBCS (0.0-0.0); Platelet Count 102 X 10*3/uL (140-440); RBC 2.45 X 10*6/uL (4.40-5.60); RDW 14.6 % (11.5-14.5); WBC 4.27 X 10*3/uL (4.50-10.00)
[2021-05-02 11:52] LABS: HCT 23.2 % (39.6-50.0); MCH 28.7 pg (27.0-32.0); MCHC 30.2 g/dL (32.0-37.0); MCV 95.1 fL (80.0-97.0); Mean Platelet Volume 11.9 fL (9.5-12.2); NRBC Per 100 WBC 0 /100 WBCS (0.0-0.0); Platelet Count 96 X 10*3/uL (140-440); RBC 2.44 X 10*6/uL (4.40-5.60); RDW 14.7 % (11.5-14.5); WBC 3.96 X 10*3/uL (4.50-10.00)
[2021-05-02 11:59] LABS: African American GFR (CKD) 139.3 (60.0-200.0); Albumin 2.6 g/dL (3.8-4.9); Anion Gap 9.1 mmol/L (10.00-18.00); BUN/Creat Ratio 23.55 Ratio (12.00-20.00); Blood Urea Nitrogen 9.6 mg/dL (9.0-27.0); Calcium 8.2 mg/dL (8.7-10.3); Carbon Dioxide 21.2 mmol/L (20.0-27.5); Globulin 2.7 g/dL (1.6-3.3); Magnesium 1.8 mg/dL (1.5-2.4); Non-African American GFR(CKD) 120.2 (60.0-200.0); Potassium 3.8 mmol/L (3.5-5.5); Total Bilirubin 1.7 mg/dL (0.30-1.20); Total Protein 5.3 g/dL (6.2-8.2)
--- NOTE | 2021-05-02 14:12 | P.PN ---
Subjective Progress Note Date: 05/02/21 (delayed charting seen at 0930 ) Principal diagnosis: Melena Patient is a 70-year-old male with past medical history of Velazquez with esophageal and gastric varices followed at [facility] with Dr. Dunn, dyslipidemia, and hepatic encephalopathy who presented to the ER with complaints of bright red blood per rectum. Patient had recently been hospitalized at [facility] and underwent both EGD and colonoscopy which showed nonbleeding varices. The ER he underwent an extensive evaluation. His hemoglobin was found to be 7.5. He is admitted for further observation. He was seen by GI and his hemoglobin had initially remained stable and the elected not to scope him at this time. However the next morning his hemoglobin had fallen from 7.5-7 without any signs of active bleeding. Patient seen and examined at bedside. He denies any recurrent bleeding. He denies any nausea or vomiting. He is overall feeling fatigued but has no additional complaints. General: Chronically ill-appearing, appears older than stated age, obese, Derm: Pallor, warm, dry Head: atraumatic, normocephalic, symmetric Eyes: EOMI, no lid lag, anicteric sclera Mouth: no lip lesion, mucus membranes moist Cardiovascular: S1S2 reg, no murmur, positive posterior tibial pulse bilateral, Lungs: CTA bilateral, no rhonchi, no rales , no accessory muscle use Abdominal: soft, nontender to palpation, no guarding, no appreciable organomegaly Ext: no gross muscle atrophy, no edema, no contractures Neuro: CN II-XI grossly intact, no focal neuro deficits Psych: Alert, oriented, slow thinking Assessment and plan: GI bleed Known gastric varices 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 -CBC has been relatively stable with 0.5 change in 24 hours would continue to monitor CBC for an additional 24 hours to ensure stability as change is from likelyIVF -Continue with lactulose and rifaximin -Continue with PPI -If patient does appear to have recurrent bleeding will be transferred to an outside facility for treatment of esophageal varices DVT prophylaxis: SCDs Discussed with: patient, nursing Anticipated discharge: in AM Anticipated discharge place: home A total of 45 minutes was spent on the care of this complex patient more than 50% of the time was spent in counseling and care coordination. Objective - Vital Signs Vital signs: Vital Signs Temp 97.9 F 05/02/21 07:00 Pulse 67 05/02/21 07:00 Resp 16 05/02/21 07:00 BP 107/57 05/02/21 07:00 Pulse Ox 95 05/02/21 07:00 Intake & Output 05/01/21 05/02/21 05/02/21 18:59 06:59 18:59 Intake Total 236 236 Balance 236 236 Intake: Oral 236 236 Other: Voiding Method Toilet # Voids 3 2 # Bowel Movements 1 - Labs CBC & Chem 7: 05/02/21 07:13 05/02/21 07:13 Labs: Abnormal Lab Results - Last 24 Hours (Table) 05/01/21 05/01/21 05/02/21 Range/Units 14:59 20:37 00:21 WBC 3.2 L 4.27 L (3.8-10.6) k/uL RBC 2.56 L 2.45 L 2.45 L (4.30-5.90) m/uL Hgb 7.6 L 7.4 L 7.0 L (13.0-17.5) gm/dL Hct 24.6 L 23.5 L 23.5 L (39.0-53.0) % MCHC 29.8 L (32.0-37.0) g/dL RDW 14.6 H (11.5-14.5) % Plt Count 100 L 104 L 102 L (150-450) k/uL Anion Gap (10.00-18.00) mmol/L Creatinine (0.6-1.5) mg/dL BUN/Creatinine Ratio (12.00-20.00) Ratio Calcium (8.7-10.3) mg/dL Total Bilirubin (0.30-1.20) mg/dL AST (14-35) U/L Alkaline Phosphatase (41-126) U/L Ammonia (<30) umol/L Total Protein (6.2-8.2) g/dL Albumin (3.8-4.9) g/dL Albumin/Globulin Ratio (1.60-3.17) g/dL 05/02/21 05/02/21 05/02/21 Range/Units 07:13 07:13 07:13 WBC 3.96 L (3.8-10.6) k/uL RBC 2.44 L (4.30-5.90) m/uL Hgb 7.0 L (13.0-17.5) gm/dL Hct 23.2 L (39.0-53.0) % MCHC 30.2 L (32.0-37.0) g/dL RDW 14.7 H (11.5-14.5) % Plt Count 96 L (150-450) k/uL Anion Gap 9.10 L (10.00-18.00) mmol/L Creatinine 0.4 L (0.6-1.5) mg/dL BUN/Creatinine Ratio 23.55 H (12.00-20.00) Ratio Calcium 8.2 L (8.7-10.3) mg/dL Total Bilirubin 1.70 H (0.30-1.20) mg/dL AST 75 H (14-35) U/L Alkaline Phosphatase 128 H (41-126) U/L Ammonia 37 H (<30) umol/L Total Protein 5.3 L (6.2-8.2) g/dL Albumin 2.6 L (3.8-4.9) g/dL Albumin/Globulin Ratio 1.00 L (1.60-3.17) g/dL
[2021-05-02 15:31] LABS: HCT 24.5 % (39.0-53.0); HGB 7.7 gm/dL (13.0-17.5); Hypochromasia Marked; MCH 30.1 pg (25.0-35.0); MCHC 31.3 g/dL (31.0-37.0); MCV 96.4 fL (80.0-100.0); Mean Platelet Volume 9.8; Poikilocytosis Slight; RBC 2.54 m/uL (4.30-5.90); RDW 14.4 % (11.5-15.5)
[2021-05-02 15:48] LABS: Platelet Count 86 k/uL (150-450)
[2021-05-02] MEDS: FUROSEMIDE 10 MG TAB PO SCH ×2 (16:41→19:35)
[2021-05-02] MEDS: SODIUM CHLORIDE 0.9% 1,000 ML IV SCH (16:42)
[2021-05-02] MEDS: MONTELUKAST 10 MG TAB PO SCH (19:35)
[2021-05-03 04:11] VITALS: PULSE 83
[2021-05-03 06:57] LABS: HCT 23.3 % (39.0-53.0); HGB 7.4 gm/dL (13.0-17.5); Hypochromasia Marked; MCH 29.9 pg (25.0-35.0); MCHC 31.7 g/dL (31.0-37.0); MCV 94.3 fL (80.0-100.0); Mean Platelet Volume 10.6; Poikilocytosis Slight; RBC 2.47 m/uL (4.30-5.90); RDW 14.7 % (11.5-15.5); WBC 3.1 k/uL (3.8-10.6)
[2021-05-03 07:04] LABS: Platelet Count 92 k/uL (150-450)
[2021-05-03 07:10] LABS: ALT 37 U/L (4-49); AST 90 U/L (17-59); African American GFR (CKD) >90 (>60 ml/min/1.73 sqM); Albumin 2.4 g/dL (3.5-5.0); Albumin/Globulin Ratio 0.7; Alkaline Phosphatase 122 U/L (38-126); Anion Gap 3 mmol/L; Blood Urea Nitrogen 10 mg/dL (9-20); Calcium 7.7 mg/dL (8.4-10.2); Carbon Dioxide 25 mmol/L (22-30); Chloride 107 mmol/L (98-107); Globulin 3.3 g/dL; Glucose 84 mg/dL (74-99); Non-African American GFR(CKD) >90 (>60 ml/min/1.73 sqM); Potassium 3.5 mmol/L (3.5-5.1); Sodium 135 mmol/L (137-145); Total Bilirubin 2.2 mg/dL (0.2-1.3); Total Protein 5.7 g/dL (6.3-8.2)
[2021-05-03 07:31] VITALS: BP 109/69; RESP 17; TEMP 97.8
[2021-05-03] MEDS: RIFAXIMIN 550 MG TABLET PO SCH (08:27)
[2021-05-03] MEDS: CYANOCOBALAMIN 500 MCG TAB PO SCH (08:28)
[2021-05-03] MEDS: LACTULOSE 20 GM/30 ML CUP PO SCH (08:28)
[2021-05-03] MEDS: PANTOPRAZOLE 40 MG/10 ML VIAL IV SCH (08:28)
[2021-05-03] MEDS: CHOLECALCIFEROL 25 MCG (1000 IU) TABLET PO SCH (08:28)
[2021-05-03] MEDS: FUROSEMIDE 10 MG TAB PO SCH (08:48)
[2021-05-03 10:25] LABS: INR 1.65 (0.90-1.11); Prothrombin Time 18.2 sec (9.9-11.9)
--- NOTE | 2021-05-03 11:33 | P.GSCN ---
History of Present Illness Consult date: 05/03/21 Reason for Consult: Anemia, esophageal varices History of present illness: This is a 70-year-old male who has had recent hospital for anemia's. Patient was recently transferred to [facility]. Gastric and esophageal varices. The patient has been readmitted for anemia. Past Medical History Past Medical History: Hyperlipidemia, Liver Disease Additional Past Medical History / Comment(s): nonalcoholic liver cirrhosis, hydrocephalus History of Any Multi-Drug Resistant Organisms: None Reported Past Surgical History: Hernia Repair, Orthopedic Surgery Additional Past Surgical History / Comment(s): neck surgery Past Anesthesia/Blood Transfusion Reactions: No Reported Reaction Past Psychological History: No Psychological Hx Reported Smoking Status: Never smoker Past Alcohol Use History: None Reported Past Drug Use History: None Reported Medications and Allergies Home Medications Medication Instructions Recorded Confirmed Type Albuterol Inhaler [Ventolin Hfa 2 puff INHALATION RT-QID PRN 09/10/20 05/01/21 History Inhaler] Cholecalciferol [Vitamin D3 (25 25 mcg PO DAILY 09/10/20 05/01/21 History Mcg = 1000 Iu)] Cyanocobalamin (Vitamin B-12) 1,000 mcg PO DAILY 09/10/20 05/01/21 History [Vitamin B-12] Montelukast [Singulair] 10 mg PO HS 09/10/20 05/01/21 History Pantoprazole [Protonix] 40 mg PO DAILY 09/10/20 05/01/21 History Lactulose 20 gm PO QID 05/01/21 05/01/21 History Rifaximin [Xifaxan] 550 mg PO BID 05/01/21 05/01/21 History Torsemide [Demadex] 5 mg PO BID 05/01/21 05/01/21 History Allergies Allergy/AdvReac Type Severity Reaction Status Date / Time ibuprofen Allergy Severe Anaphylaxis Verified 05/01/21 09:48 garlic Allergy Anaphylaxis Verified 05/01/21 09:48 Surgical - Exam Vital Signs Temp Pulse Resp BP Pulse Ox 99.4 F 86 18 107/72 96 05/01/21 01:39 05/01/21 01:39 05/01/21 01:39 05/01/21 01:39 05/01/21 01:39 - General well developed, well nourished, no distress - Eyes PERRL - ENT normal pinna - Neck no masses - Respiratory normal expansion - Cardiovascular Rhythm: regular - Abdomen Abdomen: soft, non tender Results - Labs 05/03/21 06:26 05/03/21 06:26 Abnormal Lab Results - Last 24 Hours (Table) 05/02/21 05/02/21 05/02/21 Range/Units 07:13 07:13 15:09 WBC 3.96 L 3.0 L (4.50-10.00) X 10*3/uL RBC 2.44 L 2.54 L (4.40-5.60) X 10*6/uL Hgb 7.0 L 7.7 L (13.0-17.0) g/dL Hct 23.2 L 24.5 L (39.6-50.0) % MCHC 30.2 L (32.0-37.0) g/dL RDW 14.7 H (11.5-14.5) % Plt Count 96 L 86 L (140-440) X 10*3/uL PT (9.9-11.9) sec INR (0.90-1.11) Sodium (137-145) mmol/L Anion Gap 9.10 L (10.00-18.00) mmol/L Creatinine 0.4 L (0.6-1.5) mg/dL BUN/Creatinine Ratio 23.55 H (12.00-20.00) Ratio Calcium 8.2 L (8.7-10.3) mg/dL Total Bilirubin 1.70 H (0.30-1.20) mg/dL AST 75 H (14-35) U/L Alkaline Phosphatase 128 H (41-126) U/L Total Protein 5.3 L (6.2-8.2) g/dL Albumin 2.6 L (3.8-4.9) g/dL Albumin/Globulin Ratio 1.00 L (1.60-3.17) g/dL 05/03/21 05/03/21 05/03/21 Range/Units 06:26 06:26 06:26 WBC 3.1 L (4.50-10.00) X 10*3/uL RBC 2.47 L (4.40-5.60) X 10*6/uL Hgb 7.4 L (13.0-17.0) g/dL Hct 23.3 L (39.6-50.0) % MCHC (32.0-37.0) g/dL RDW (11.5-14.5) % Plt Count 92 L (140-440) X 10*3/uL PT 18.2 H (9.9-11.9) sec INR 1.65 H (0.90-1.11) Sodium 135 L (137-145) mmol/L Anion Gap (10.00-18.00) mmol/L Creatinine 0.42 L (0.6-1.5) mg/dL BUN/Creatinine Ratio (12.00-20.00) Ratio Calcium 7.7 L (8.7-10.3) mg/dL Total Bilirubin 2.2 H (0.30-1.20) mg/dL AST 90 H (14-35) U/L Alkaline Phosphatase (41-126) U/L Total Protein 5.7 L (6.2-8.2) g/dL Albumin 2.4 L (3.8-4.9) g/dL Albumin/Globulin Ratio (1.60-3.17) g/dL Diabetes panel 05/02/21 05/03/21 Range/Units 07:13 06:26 Sodium 138 135 L (135-145) mmol/L Potassium 3.8 3.5 (3.5-5.5) mmol/L Chloride 108 107 (96-109) mmol/L Carbon Dioxide 21.2 25 (20.0-27.5) mmol/L BUN 9.6 10 (9.0-27.0) mg/dL Creatinine 0.4 L 0.42 L (0.6-1.5) mg/dL Glucose 86 84 (70-110) mg/dL Calcium 8.2 L 7.7 L (8.7-10.3) mg/dL AST 75 H 90 H (14-35) U/L ALT 36 37 (10-49) U/L Alkaline Phosphatase 128 H 122 (41-126) U/L Total Protein 5.3 L 5.7 L (6.2-8.2) g/dL Albumin 2.6 L 2.4 L (3.8-4.9) g/dL Calcium panel 05/02/21 05/03/21 Range/Units 07:13 06:26 Calcium 8.2 L 7.7 L (8.7-10.3) mg/dL Albumin 2.6 L 2.4 L (3.8-4.9) g/dL Pituitary panel 05/02/21 05/03/21 Range/Units 07:13 06:26 Sodium 138 135 L (135-145) mmol/L Potassium 3.8 3.5 (3.5-5.5) mmol/L Chloride 108 107 (96-109) mmol/L Carbon Dioxide 21.2 25 (20.0-27.5) mmol/L BUN 9.6 10 (9.0-27.0) mg/dL Creatinine 0.4 L 0.42 L (0.6-1.5) mg/dL Glucose 86 84 (70-110) mg/dL Calcium 8.2 L 7.7 L (8.7-10.3) mg/dL Adrenal panel 05/02/21 05/03/21 Range/Units 07:13 06:26 Sodium 138 135 L (135-145) mmol/L Potassium 3.8 3.5 (3.5-5.5) mmol/L Chloride 108 107 (96-109) mmol/L Carbon Dioxide 21.2 25 (20.0-27.5) mmol/L BUN 9.6 10 (9.0-27.0) mg/dL Creatinine 0.4 L 0.42 L (0.6-1.5) mg/dL Glucose 86 84 (70-110) mg/dL Calcium 8.2 L 7.7 L (8.7-10.3) mg/dL Total Bilirubin 1.70 H 2.2 H (0.30-1.20) mg/dL AST 75 H 90 H (14-35) U/L ALT 36 37 (10-49) U/L Alkaline Phosphatase 128 H 122 (41-126) U/L Total Protein 5.3 L 5.7 L (6.2-8.2) g/dL Albumin 2.6 L 2.4 L (3.8-4.9) g/dL Assessment and Plan Assessment: History of gastric and esophageal varices. The patient will be observed closely. If he shows any significant signs of bleeding. He will need to be transferred back to [facility]. There is no GI support this week. And I do not do any interventions for esophageal varices.
--- NOTE | 2021-05-03 15:33 | P.DS ---
Providers Date of admission: 05/01/21 04:23 Expected date of discharge: 05/03/21 Attending physician: Lillian Moran MD Consults: 05/01/21 04:24 Consult Physician Routine Consulting Provider: Symone Vo Consult Reason/Comments: Your patient. GI bleeding Do you want consulting provider notified?: Yes 05/02/21 13:04 Consult Physician Routine Consulting Provider: Mike Barnes Consult Reason/Comments: GI bleed hx of gastric varicies Do you want consulting provider notified?: Yes Primary care physician: Sunday Bhatt Hospital Course: Discharge Diagnosis: GI bleed Known gastric varices resulting from cirrhosis Anemia, acute on chronic- suspect component of Fe deficiency Cirrhosis due to SAUER Hepatic encephalopathy Coagulopathy Pancytopenia suspect secondary to cirrhosis Portal gastritis Hospital Course: Patient is a 70-year-old male with past medical history of Sauer with esophageal and gastric varices followed at [facility] with Dr. Dunn, dyslipidemia, and hepatic encephalopathy who presented to the ER with complaints of bright red blood per rectum. Patient had recently been hospitalized at [facility] and underwent both EGD and colonoscopy which showed nonbleeding varices. The ER he underwent an extensive evaluation. His hemoglobin was found to be 7.5. He is admitted for further observation. He was seen by GI and his hemoglobin had initially remained stable and the elected not to scope him at this time. However the next morning his hemoglobin had fallen from 7.5-7 without any signs of active bleeding. He continues to well without any additional signs of melena. Hemoglobin was stable. He was determined stable for discharge home. Follow-up: Dr. Hinojosa in 2-3 weeks, Dr. Dunn in May as previously scheduled, PCP in 1-2 days. Patient will have repeat CBC early next week. He will increase his Protonix to twice daily. He will also started on Slow Fe [id number]. He was given my office number to call should he have questions about medications as his thinks he was already on something to help with acid reflux and that he had recently been switched to propranolol which is not on his home med list Patient seen and examined at bedside. With present. We had approximately a 20 minute discussion regarding medications, overall prognosis is liver c irrhosis, and had a tincture his lactulose for maximal response. All questions answered best of my ability. Patient denies any additional nausea, vomiting, or melena. We discussed that he should come back should he have right side vomiting or in his stool. We also discussed with the iron he is being sent home with can cause dark stools that he will need to monitor closely. Vital signs reviewed and stable. General: non toxic, no distress, appears at stated age Derm: Pallor, warm, dry Head: atraumatic, normocephalic, symmetric Eyes: EOMI, no lid lag, anicteric sclera Mouth: no lip lesion, mucus membranes moist Cardiovascular: S1S2 reg, no murmur, positive posterior tibial pulse bilateral, Lungs: CTA bilateral, no rhonchi, no rales , no accessory muscle use Abdominal: soft, nontender to palpation, no guarding, no appreciable organomegaly Ext: no gross muscle atrophy, 2+ edema, no contractures Neuro: CN II-XI grossly intact, no focal neuro deficits Psych: Alert, oriented, appropriate affect A total of 27 minutes of time were spent preparing this complex discharge summary . Patient Condition at Discharge: Stable Plan - Discharge Summary New Discharge Prescriptions: New Ferrous Sulfate [Slow Fe] 142 mg PO DAILY #30 tab Continue Cholecalciferol [Vitamin D3 (25 Mcg = 1000 Iu)] 25 mcg PO DAILY Torsemide [Demadex] 5 mg PO BID Montelukast [Singulair] 10 mg PO HS Cyanocobalamin (Vitamin B-12) [Vitamin B-12] 1,000 mcg PO DAILY Albuterol Inhaler [Ventolin Hfa Inhaler] 2 puff INHALATION RT-QID PRN PRN Reason: Shortness Of Breath Rifaximin [Xifaxan] 550 mg PO BID Lactulose 20 gm PO QID Changed Pantoprazole [Protonix] 40 mg PO BID #0 Discharge Medication List Albuterol Inhaler [Ventolin Hfa Inhaler] 2 puff INHALATION RT-QID PRN 09/10/20 [History] Cholecalciferol [Vitamin D3 (25 Mcg = 1000 Iu)] 25 mcg PO DAILY 09/10/20 [History] Cyanocobalamin (Vitamin B-12) [Vitamin B-12] 1,000 mcg PO DAILY 09/10/20 [History] Montelukast [Singulair] 10 mg PO HS 09/10/20 [History] Lactulose 20 gm PO QID 05/01/21 [History] Rifaximin [Xifaxan] 550 mg PO BID 05/01/21 [History] Torsemide [Demadex] 5 mg PO BID 05/01/21 [History] Ferrous Sulfate [Slow Fe] 142 mg PO DAILY #30 tab 05/03/21 [Rx] Pantoprazole [Protonix] 40 mg PO BID #0 05/03/21 [Rx] Follow up Appointment(s)/Referral(s): Symone Vo MD [STAFF PHYSICIAN] - 1 Week Sunday Bhatt MD [Primary Care Provider] - 1 Week Ambulatory/Diagnostic Orders: Complete Blood Count w/diff [LAB.AMB] Time Frame: 3 Days, Location: None Selected Activity/Diet/Wound Care/Special Instructions: Activity: as tolerated Diet: low sodium Special Instructions: Follow with Dr. Dunn as scheduled CBC this week Take Protonix twice daily Call [phone] Nurse Terese with acid reflux medications Discharge Disposition: HOME SELF-CARE
== END 2021-05-03 13:40 | disposition home or self-care (01) ==
LOC: EC 01:39 → INTOOBSV 04:23 → 6NMEDSUR 04:23 → OBSVTOIN 04:23
PROVIDERS: ADMIT Internal Medicine; ATTEND Internal Medicine
DX: K92.2 Gastrointestinal hemorrhage, unspecified (principal); I85.10 Secondary esophageal varices without bleeding; K75.81 Nonalcoholic steatohepatitis (NASH); K74.60 Unspecified cirrhosis of liver; D64.9 Anemia, unspecified; I95.9 Hypotension, unspecified; D68.9 Coagulation defect, unspecified; D61.818 Other pancytopenia; K29.70 Gastritis, unspecified, without bleeding; E78.5 Hyperlipidemia, unspecified; K57.30 Diverticulosis of large intestine without perforation or abscess without bleeding; K64.8 Other hemorrhoids; J98.11 Atelectasis; E66.9 Obesity, unspecified; Z68.29 Body mass index [BMI] 29.0-29.9, adult; K76.6 Portal hypertension; Z79.899 Other long term (current) drug therapy; Z91.018 Allergy to other foods; Z88.6 Allergy status to analgesic agent
CPT/HCPCS: 96376 ×2; 96361 ×2; 96374; 99285; 36415; 86900; 86901; 80053 ×3; 82140 ×2; 83735; 85025; 85027 ×3; 85610 ×2; 85730; 86850; G0378 ×3; C9113 ×3

== ENCOUNTER 2021-05-21 10:31 | Observation (INO) | payer MEDICARE ==
[2021-05-21] MEDS ORDERED: SODIUM CHLORIDE 0.9% 1,000 ML IV STA (11:06)
--- NOTE | 2021-05-21 11:27 | ED ---
General Adult HPI - General Source: patient, RN notes reviewed, old records reviewed Mode of arrival: ambulatory Limitations: no limitations <Aneta Ryan - Last Filed: 05/21/21 16:14> <Bella Howard - Last Filed: 05/24/21 10:35> - General Chief complaint: Neuro Symptoms/Deficit Stated complaint: lost vision in left eye Time Seen by Provider: 05/21/21 10:49 - History of Present Illness Initial comments: 70-year-old male presents to the emergency department with chief complaint of history of 4 hours of losing vision in the lower visual field of his left eye yesterday. He reports that the vision spontaneously returned. The report he lost his vision while he was at home and sitting on the couch. He states that he has had no headache. He has had no other neurological changes or disturbances. He reports that he contact his primary care doctor and was evaluated by funeral service manager today. Patient had his eyes dilated by ophthalmology and was evaluated and ruled out retinal detachment, they discussed that patient needed to come to ER for further workup and evaluation. Patient has a history of cirrhosis which is cause portal venous hypertension and was he's had a history of hydrocephalus related to this. He had an MRI outpatiently to address this one month ago. Denies cardiac abnormalities, denies history of A. fib, denies history of TIAs or previous strokes. (Aneta Ryan) - Related Data Home Medications Medication Instructions Recorded Confirmed Albuterol Inhaler [Ventolin Hfa 2 puff INHALATION RT-QID PRN 09/10/20 05/21/21 Inhaler] Cholecalciferol [Vitamin D3 (25 25 mcg PO DAILY 09/10/20 05/21/21 Mcg = 1000 Iu)] Montelukast [Singulair] 10 mg PO HS 09/10/20 05/21/21 Lactulose 20 gm PO QID 05/01/21 05/21/21 Rifaximin [Xifaxan] 550 mg PO BID 05/01/21 05/21/21 Cyanocobalamin [Vitamin B-12] 500 mcg PO DAILY 05/21/21 05/21/21 Famotidine [Pepcid] 20 mg PO BID 05/21/21 05/21/21 Iron 45mg 45 mg PO DAILY 05/21/21 05/21/21 Pantoprazole [Protonix] 40 mg PO DAILY 05/21/21 05/21/21 Torsemide [Demadex] 2.5 mg PO BID 05/21/21 05/21/21 Allergies Allergy/AdvReac Type Severity Reaction Status Date / Time ibuprofen Allergy Severe Anaphylaxis Verified 05/21/21 12:00 garlic Allergy Anaphylaxis Verified 05/21/21 12:00 Review of Systems ROS Other: All systems not noted in ROS Statement are negative. <Aneta Ryan - Last Filed: 05/21/21 16:14> ROS Other: All systems not noted in ROS Statement are negative. <Bella Howard - Last Filed: 05/24/21 10:35> ROS Statement: Those systems with pertinent positive or pertinent negative responses have been documented in the HPI. Past Medical History Past Medical History: Hyperlipidemia, Liver Disease Additional Past Medical History / Comment(s): nonalcoholic liver cirrhosis, hydrocephalus History of Any Multi-Drug Resistant Organisms: None Reported Past Surgical History: Hernia Repair, Orthopedic Surgery Additional Past Surgical History / Comment(s): neck surgery Past Anesthesia/Blood Transfusion Reactions: No Reported Reaction Past Psychological History: No Psychological Hx Reported Smoking Status: Never smoker Past Alcohol Use History: None Reported Past Drug Use History: None Reported <Carleen Ryanily - Last Filed: 05/21/21 16:14> General Exam Limitations: no limitations General appearance: alert, in no apparent distress Head exam: Present: atraumatic, normocephalic, normal inspection Eye exam: Present: normal appearance, PERRL, EOMI. Absent: scleral icterus, conjunctival injection, periorbital swelling ENT exam: Present: normal exam, mucous membranes moist Neck exam: Present: normal inspection. Absent: tenderness, meningismus, lymphadenopathy Respiratory exam: Present: normal lung sounds bilaterally. Absent: respiratory distress, wheezes, rales, rhonchi, stridor Cardiovascular Exam: Present: regular rate, normal rhythm, normal heart sounds. Absent: systolic murmur, diastolic murmur, rubs, gallop, clicks GI/Abdominal exam: Present: soft, normal bowel sounds. Absent: distended, tenderness, guarding, rebound, rigid Extremities exam: Present: normal inspection, full ROM, normal capillary refill. Absent: tenderness, pedal edema, joint swelling, calf tenderness Back exam: Present: normal inspection Neurological exam: Present: alert, oriented X3, CN II-XII intact Expanded Patient oriented to: Present: person, place, time Speech: Present: fluid speech Cranial nerves: EOM's Intact: Normal Cerebellar function: Finger to Nose: Normal Upper motor neuron: Danish Neglect: Normal Sensory exam: Upper Extremity Light Touch: Normal, Lower Extremity Light Touch: Normal Motor strength exam: RUE: 5, LUE: 5, RLE: 5, LLE: 5 Eye Response: (4) open spontaneously Motor Response: (6) obeys commands Verbal Response: (5) oriented [place] Total: 15 Psychiatric exam: Present: normal affect, normal mood Skin exam: Present: warm, dry, intact, normal color. Absent: rash <Aneta Ryan - Last Filed: 05/21/21 16:14> - General Exam Comments Initial Comments: 70-year-old male. Alert and oriented. No acute distress. (Aneta Ryan) Course Vital Signs 05/21/21 05/21/21 10:32 15:45 Temperature 98.8 F Pulse Rate 86 68 Respiratory 18 16 Rate Blood Pressure 116/62 100/64 O2 Sat by Pulse 98 98 Oximetry Medical Decision Making - Lab Data Result diagrams: 05/21/21 11:16 05/21/21 11:16 - Radiology Data Radiology results: report reviewed <Aneta Ryan - Last Filed: 05/21/21 16:14> - Lab Data Result diagrams: 05/22/21 11:21 05/21/21 11:16 <Bella Howard - Last Filed: 05/24/21 10:35> - Medical Decision Making Patient is a 70 year old with lower visual eye loss for 4 hours yesterday. He was evaluated by opthamology, and sent to ER for neuro evaluation. He has no other neurodeficits. He has no headache. History of cirrhosis, non alcoholic and meeting with transplant team soon. He has no acute findings on CT scan. WAs evaluated by neurlogist and echo ordered. Patient case discussed with Dr. Kellogg, whom will admit for observation until tests complete. (Aneta Ryan) I was available for consultation in the emergency department. The history and physical exam were done by the midlevel provider. I was consulted for this patients care. I reviewed the case with the midlevel provider and based on their presentation of the patient, I agree with the assessment, medical decision making and plan of care as documented. Chart was dictated using [employer] dictation software. Attempts were made to correct any dictation errors however some typographical errors may persist. Patient was seen during a national state of emergency due to the Covid-19 pandemic. (Bella Howard) - Lab Data Lab Results 05/21/21 05/21/21 05/21/21 Range/Units 11:16 11:16 11:16 WBC 4.1 (3.8-10.6) k/uL RBC 2.98 L (4.30-5.90) m/uL Hgb 8.4 L (13.0-17.5) gm/dL Hct 26.5 L (39.0-53.0) % MCV 88.9 D (80.0-100.0) fL MCH 28.1 (25.0-35.0) pg MCHC 31.6 (31.0-37.0) g/dL RDW 16.3 H (11.5-15.5) % Plt Count 107 L (150-450) k/uL MPV 10.9 Neutrophils % 60 % Lymphocytes % 25 % Monocytes % 6 % Eosinophils % 5 % Basophils % 1 % Neutrophils # 2.4 (1.3-7.7) k/uL Lymphocytes # 1.0 (1.0-4.8) k/uL Monocytes # 0.2 (0-1.0) k/uL Eosinophils # 0.2 (0-0.7) k/uL Basophils # 0.1 (0-0.2) k/uL Hypochromasia Marked Poikilocytosis Slight Anisocytosis Slight ESR (0-15) mm/hr PT 17.2 H (9.0-12.0) sec INR 1.7 H (<1.2) APTT 31.2 H (22.0-30.0) sec Sodium 135 L (137-145) mmol/L Potassium 3.8 (3.5-5.1) mmol/L Chloride 107 (98-107) mmol/L Carbon Dioxide 21 L (22-30) mmol/L Anion Gap 7 mmol/L BUN 10 (9-20) mg/dL Creatinine 0.57 L (0.66-1.25) mg/dL Est GFR (CKD-EPI)AfAm >90 (>60 ml/min/1.73 sqM) Est GFR (CKD-EPI)NonAf >90 (>60 ml/min/1.73 sqM) Glucose 101 H (74-99) mg/dL Estimated Ave Glu mg/dL Hemoglobin A1c (0.0-6.0) % Calcium 8.0 L (8.4-10.2) mg/dL Total Bilirubin 2.2 H (0.2-1.3) mg/dL AST 95 H (17-59) U/L ALT 35 (4-49) U/L Alkaline Phosphatase 150 H (38-126) U/L Ammonia (<30) umol/L Troponin I (0.000-0.034) ng/mL C-Reactive Protein (<1.0) mg/dL Total Protein 6.6 (6.3-8.2) g/dL Albumin 2.8 L (3.5-5.0) g/dL Urine Color Urine Appearance (Clear) Urine pH (5.0-8.0) Ur Specific [place] (1.001-1.035) Urine Protein (Negative) Urine Glucose (UA) (Negative) Urine Ketones (Negative) Urine Blood (Negative) Urine Nitrite (Negative) Urine Bilirubin (Negative) Urine Urobilinogen (<2.0) mg/dL Ur Leukocyte Esterase (Negative) 05/21/21 05/21/21 05/21/21 Range/Units 11:16 11:16 12:11 WBC (3.8-10.6) k/uL RBC (4.30-5.90) m/uL Hgb (13.0-17.5) gm/dL Hct (39.0-53.0) % MCV (80.0-100.0) fL MCH (25.0-35.0) pg MCHC (31.0-37.0) g/dL RDW (11.5-15.5) % Plt Count (150-450) k/uL MPV Neutrophils % % Lymphocytes % % Monocytes % % Eosinophils % % Basophils % % Neutrophils # (1.3-7.7) k/uL Lymphocytes # (1.0-4.8) k/uL Monocytes # (0-1.0) k/uL Eosinophils # (0-0.7) k/uL Basophils # (0-0.2) k/uL Hypochromasia Poikilocytosis Anisocytosis ESR (0-15) mm/hr PT (9.0-12.0) sec INR (<1.2) APTT (22.0-30.0) sec Sodium (137-145) mmol/L Potassium (3.5-5.1) mmol/L Chloride (98-107) mmol/L Carbon Dioxide (22-30) mmol/L Anion Gap mmol/L BUN (9-20) mg/dL Creatinine (0.66-1.25) mg/dL Est GFR (CKD-EPI)AfAm (>60 ml/min/1.73 sqM) Est GFR (CKD-EPI)NonAf (>60 ml/min/1.73 sqM) Glucose (74-99) mg/dL Estimated Ave Glu mg/dL Hemoglobin A1c (0.0-6.0) % Calcium (8.4-10.2) mg/dL Total Bilirubin (0.2-1.3) mg/dL AST (17-59) U/L ALT (4-49) U/L Alkaline Phosphatase (38-126) U/L Ammonia 28 (<30) umol/L Troponin I <0.012 (0.000-0.034) ng/mL C-Reactive Protein (<1.0) mg/dL Total Protein (6.3-8.2) g/dL Albumin (3.5-5.0) g/dL Urine Color Yellow Urine Appearance Clear (Clear) Urine pH 5.0 (5.0-8.0) Ur Specific [place] 1.011 (1.001-1.035) Urine Protein Negative (Negative) Urine Glucose (UA) Negative (Negative) Urine Ketones Negative (Negative) Urine Blood Negative (Negative) Urine Nitrite Negative (Negative) Urine Bilirubin Negative (Negative) Urine Urobilinogen <2.0 (<2.0) mg/dL Ur Leukocyte Esterase Negative (Negative) 05/21/21 05/21/21 05/21/21 Range/Units 15:30 15:44 15:44 WBC (3.8-10.6) k/uL RBC (4.30-5.90) m/uL Hgb (13.0-17.5) gm/dL Hct (39.0-53.0) % MCV (80.0-100.0) fL MCH (25.0-35.0) pg MCHC (31.0-37.0) g/dL RDW (11.5-15.5) % Plt Count (150-450) k/uL MPV Neutrophils % % Lymphocytes % % Monocytes % % Eosinophils % % Basophils % % Neutrophils # (1.3-7.7) k/uL Lymphocytes # (1.0-4.8) k/uL Monocytes # (0-1.0) k/uL Eosinophils # (0-0.7) k/uL Basophils # (0-0.2) k/uL Hypochromasia Poikilocytosis Anisocytosis ESR 25 H (0-15) mm/hr PT (9.0-12.0) sec INR (<1.2) APTT (22.0-30.0) sec Sodium (137-145) mmol/L Potassium (3.5-5.1) mmol/L Chloride (98-107) mmol/L Carbon Dioxide (22-30) mmol/L Anion Gap mmol/L BUN (9-20) mg/dL Creatinine (0.66-1.25) mg/dL Est GFR (CKD-EPI)AfAm (>60 ml/min/1.73 sqM) Est GFR (CKD-EPI)NonAf (>60 ml/min/1.73 sqM) Glucose (74-99) mg/dL Estimated Ave Glu mg/dL 88 Hemoglobin A1c 4.7 (0.0-6.0) % Calcium (8.4-10.2) mg/dL Total Bilirubin (0.2-1.3) mg/dL AST (17-59) U/L ALT (4-49) U/L Alkaline Phosphatase (38-126) U/L Ammonia (<30) umol/L Troponin I (0.000-0.034) ng/mL C-Reactive Protein 0.8 (<1.0) mg/dL Total Protein (6.3-8.2) g/dL Albumin (3.5-5.0) g/dL Urine Color Urine Appearance (Clear) Urine pH (5.0-8.0) Ur Specific [place] (1.001-1.035) Urine Protein (Negative) Urine Glucose (UA) (Negative) Urine Ketones (Negative) Urine Blood (Negative) Urine Nitrite (Negative) Urine Bilirubin (Negative) Urine Urobilinogen (<2.0) mg/dL Ur Leukocyte Esterase (Negative) 05/21/21 11:32 EKG shows normal sinus rhythm normal EKG, ventricular rate of 83 bpm period. Her bowels 146 most seconds. QS pentecostalism is 106 most seconds. QT QTc is 402/442 ms. (Aneta Ryan) - Radiology Data Mild pulmonary findings. Prominent epicardial fat pad. Questionable mild COPD changes. Grossly unremarkable lungs otherwise. No sizable pleural effusion or definite pneumothorax. No gross cardiac medically. General changes of thoracic spine noted. CT brain shows no acute intracranial normality or no gross space-occupying lesion on this unenhanced computed tomography scan. Incidental findings of a partially empty sella, brain volume loss changes. No acute intracranial hemorrhage. No gross acute cortical infarct. Unremarkable christesnen-white matter differentiation basal cisterns sella, CP angles. No gross active a lesion. Unremarkable orbits. Mucosal thickening of the next her sinuses with chronic degenerative changes of the sphenoid sinus. Hyponatremia denies mastoid air cells. (Aneta Ryan) Disposition Is patient prescribed a controlled substance at d/c from ED?: No Time of Disposition: 16:16 <Aneta Ryan - Last Filed: 05/21/21 16:14> <Bella Howard - Last Filed: 05/24/21 10:35> Clinical Impression: Vision loss of left eye, History of cirrhosis Disposition: ADMITTED IP TO THIS HOSP Condition: Good
[2021-05-21 11:29] LABS: Anisocytosis Slight; Basophils # (A) 0.1 k/uL (0-0.2); Basophils % (A) 1 %; Eosinophils # (A) 0.2 k/uL (0-0.7); Eosinophils % (A) 5 %; HCT 26.5 % (39.0-53.0); HGB 8.4 gm/dL (13.0-17.5); Hypochromasia Marked; Lymphocytes % (A) 25 %; MCH 28.1 pg (25.0-35.0); MCHC 31.6 g/dL (31.0-37.0); Mean Platelet Volume 10.9; Monocytes # (A) 0.2 k/uL (0-1.0); Monocytes % (A) 6 %; Neutrophils # (A) 2.4 k/uL (1.3-7.7); Neutrophils % (A) 60 %; Platelet Count 107 k/uL (150-450); Poikilocytosis Slight; RBC 2.98 m/uL (4.30-5.90); RDW 16.3 % (11.5-15.5); WBC 4.1 k/uL (3.8-10.6)
[2021-05-21 11:36] LABS: MCV 88.9 fL (80.0-100.0)
[2021-05-21 11:46] LABS: ALT 35 U/L (4-49); AST 95 U/L (17-59); African American GFR (CKD) >90 (>60 ml/min/1.73 sqM); Albumin 2.8 g/dL (3.5-5.0); Alkaline Phosphatase 150 U/L (38-126); Anion Gap 7 mmol/L; Blood Urea Nitrogen 10 mg/dL (9-20); Carbon Dioxide 21 mmol/L (22-30); Chloride 107 mmol/L (98-107); Glucose 101 mg/dL (74-99); Non-African American GFR(CKD) >90 (>60 ml/min/1.73 sqM); Potassium 3.8 mmol/L (3.5-5.1); Sodium 135 mmol/L (137-145); Total Bilirubin 2.2 mg/dL (0.2-1.3); Total Protein 6.6 g/dL (6.3-8.2)
--- NOTE | 2021-05-21 11:47 | CT ---
EXAMINATION TYPE: CT brain wo con DATE OF EXAM: 05/21/2021 COMPARISON: MRI dated 09/12/2020 HISTORY: History of vision loss yesterday CT DLP: 1139.4 mGycm Automated exposure control for dose reduction was used. TECHNIQUE: CT scan of the brain is performed without IV contrast administration. FINDINGS: Partial empty sella. Brain volume loss changes, possibly age-related. No acute intracranial hemorrhag e. No gross acute cortical infarct. No midline shift, herniation or ventriculomegaly. Unremarkable christensen-white matter differentiation, basal cisterns, sella and CP angles. No gross space-o ccupying lesion, vasogenic edema or mass effect. Unremarkable orbits. Mucosal thickening of the maxillary sinuses with chronic inflammatory changes of the sphenoid sinus. Hypopneumatized mastoid air cells. No aggressive bone lesion. IMPRESSION: No acute intracranial abnormality or gross space-occupying lesion by this nonenhanced CT scan. Incide ntal findings as described above.
[2021-05-21 11:49] LABS: INR 1.7 (<1.2); Partial Thromboplastin Time 31.2 sec (22.0-30.0); Prothrombin Time 17.2 sec (9.0-12.0)
--- NOTE | 2021-05-21 12:07 | XR ---
EXAMINATION TYPE: XR chest 2V DATE OF EXAM: 05/21/2021 COMPARISON: X-ray dated 02/26/2020 HISTORY: Altered mental status, history of asthma and productive cough. TECHNIQUE: Frontal and lateral views of the chest are obtained. FINDINGS: Prominent epicardial fat pad. Questionable mild COPD changes. Grossly unremarkable lungs otherwise. N o sizable pleural effusion or definite pneumothorax. No gross cardiomegaly. Degenerative changes of t he thoracic spine. IMPRESSION: Mild pulmonary findings as described above.
[2021-05-21 12:21] LABS: Appearance,Urine Clear (Clear); Bilirubin,Urine Negative (Negative); Blood,Urine Negative (Negative); Color,Urine Yellow; Glucose,Urine (UA) Negative (Negative); Ketones,Urine Negative (Negative); Leukocyte Esterase,Urine Negative (Negative); Nitrite,Urine Negative (Negative); Protein,Urine Negative (Negative); Specific Gravity,Urine 1.011 (1.001-1.035); Urobilinogen,Urine <2.0 mg/dL (<2.0)
--- NOTE | 2021-05-21 13:17 | CT ---
EXAMINATION TYPE: CT angio head neck DATE OF EXAM: 05/21/2021 HISTORY: TIA/Vision loss yesterday COMPARISON: No previous CTA CT DLP: 606.6 mGycm. Automated Exposure Control for Dose Reduction was Utilized. TECHNIQUE: CTA scan of the neck is performed with IV Contrast, patient injected with 65 ml mL of Iso melo 370, axial images are obtained, coronal and sagittal reformatted images are reviewed. 3D reconstr ucted images are created on an independent workstation and reviewed. FINDINGS: Carotid/Vascular Structures: The pulmonary trunk measures 3.7 cm suggestive of pulmonary hypertension . Scattered arterial atherosclerotic calcifications. Mild stenosis of the right vertebral artery with in the right C2 transverse foramen. Medialization of the left internal carotid artery seen posterior to the pharynx, obscured at that level due to artifacts from adjacent metallic prosthesis. Hypoplasti c A1 segment of the left CASEY. Otherwise normal caliber and enhancement of the major neck arteries and intracranial arteries without other arterial stenosis, occlusion, dissection, aneurysm or AV malform ation. Patent major intracranial venous sinuses. Other: No intracranial abnormal enhancement. Degenerative changes of the cervical spine with previous anterior fixation of C2 down to C5. IMPRESSION: No significant arterial stenosis, occlusion, dissection or other acute abnormality of the major neck or the intracranial arteries. Incidental findings as described above.
[2021-05-21] MEDS ORDERED: NALOXONE 0.4 MG/ML 1 ML VIAL IV PRN (16:17)
[2021-05-21] MEDS ORDERED: ALBUTEROL NEBULIZED 2.5 MG/3 ML INHALATION PRN (17:09)
--- NOTE | 2021-05-21 17:18 | P.HPIM ---
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 Dunn, dyslipidemia and hepatic encephalopathy who presents to the ED with vision loss in the upper field of his left eye that lasted for 4 hours yesterday. Patient stated that he was only able to see the bottom half of his and then gradually his vision returned. Patient saw an chef de partie today. The chef de partie dilated his pupils and ruled out retinal detachment. He was then told to go to the ER to rule out a stroke. Patient denies any headache. Patient had a CT head that was negative for acute bleed. Patient is CTA head and neck were negative for significant stenosis. Patient had an echocardiogram and results are pending Review of Systems 10 ROS reviewed and are negative except as noted in HPI Past Medical History Past Medical History: Hyperlipidemia, Liver Disease Additional Past Medical History / Comment(s): nonalcoholic liver cirrhosis, hydrocephalus History of Any Multi-Drug Resistant Organisms: None Reported Past Surgical History: Hernia Repair, Orthopedic Surgery Additional Past Surgical History / Comment(s): neck surgery Past Anesthesia/Blood Transfusion Reactions: No Reported Reaction Past Psychological History: No Psychological Hx Reported Smoking Status: Never smoker Past Alcohol Use History: None Reported Past Drug Use History: None Reported Medications and Allergies Home Medications Medication Instructions Recorded Confirmed Type Albuterol Inhaler [Ventolin Hfa 2 puff INHALATION RT-QID PRN 09/10/20 05/21/21 History Inhaler] Cholecalciferol [Vitamin D3 (25 25 mcg PO DAILY 09/10/20 05/21/21 History Mcg = 1000 Iu)] Montelukast [Singulair] 10 mg PO HS 09/10/20 05/21/21 History Lactulose 20 gm PO QID 05/01/21 05/21/21 History Rifaximin [Xifaxan] 550 mg PO BID 05/01/21 05/21/21 History Cyanocobalamin [Vitamin B-12] 500 mcg PO DAILY 05/21/21 05/21/21 History Famotidine [Pepcid] 20 mg PO BID 05/21/21 05/21/21 History Iron 45mg 45 mg PO DAILY 05/21/21 05/21/21 History Pantoprazole [Protonix] 40 mg PO DAILY 05/21/21 05/21/21 History Propranolol [Inderal] 10 mg PO BID 05/21/21 05/21/21 History Torsemide [Demadex] 2.5 mg PO BID 05/21/21 05/21/21 History Allergies Allergy/AdvReac Type Severity Reaction Status Date / Time ibuprofen Allergy Severe Anaphylaxis Verified 05/21/21 12:00 garlic Allergy Anaphylaxis Verified 05/21/21 12:00 Physical Exam Osteopathic Statement: *. No significant issues noted on an osteopathic structural exam other than those noted in the History and Physical/Consult. Vitals: Vital Signs Temp Pulse Resp BP Pulse Ox 05/21/21 15:45 68 16 100/64 98 05/21/21 10:32 98.8 F 86 18 116/62 98 Intake and Output 05/21/21 05/21/21 05/21/21 06:59 14:59 22:59 Other: Weight 92.986 kg General: [Alert and oriented, well nourished, no acute distress]. Eye: [PERRL, EOMI, normal conjunctiva]. HENT: [Normocephalic, clear tympanic membranes, normal hearing, moist oral mucosa, no scleral icterus, no sinus tenderness]. Neck: [Supple, non-tender, no carotid bruits, no JVD, no lymphadenopathy]. Lungs: [Clear to auscultation and percussion, non-labored respiration]. Heart: [Normal rate, regular rhythm, no murmur, gallop or edema]. Abdomen: [Soft, non-tender, non-distended, normal bowel sounds, no masses]. Musculoskeletal: [Normal range of motion and strength, no tenderness or swelling]. Skin: [Skin is warm, dry and pink, no rashes or lesions]. Neurologic: [Awake, alert, and oriented X3, CN II-XII intact]. Psychiatric: [Cooperative, appropriate mood and affect]. Results CBC & Chem 7: 05/21/21 11:16 05/21/21 11:16 Labs: Abnormal Lab Results - Last 24 Hours (Table) 05/21/21 05/21/21 05/21/21 Range/Units 11:16 11:16 11:16 RBC 2.98 L (4.30-5.90) m/uL Hgb 8.4 L (13.0-17.5) gm/dL Hct 26.5 L (39.0-53.0) % RDW 16.3 H (11.5-15.5) % Plt Count 107 L (150-450) k/uL ESR (0-15) mm/hr PT 17.2 H (9.0-12.0) sec INR 1.7 H (<1.2) APTT 31.2 H (22.0-30.0) sec Sodium 135 L (137-145) mmol/L Carbon Dioxide 21 L (22-30) mmol/L Creatinine 0.57 L (0.66-1.25) mg/dL Glucose 101 H (74-99) mg/dL Calcium 8.0 L (8.4-10.2) mg/dL Total Bilirubin 2.2 H (0.2-1.3) mg/dL AST 95 H (17-59) U/L Alkaline Phosphatase 150 H (38-126) U/L Albumin 2.8 L (3.5-5.0) g/dL 05/21/21 Range/Units 15:44 RBC (4.30-5.90) m/uL Hgb (13.0-17.5) gm/dL Hct (39.0-53.0) % RDW (11.5-15.5) % Plt Count (150-450) k/uL ESR 25 H (0-15) mm/hr PT (9.0-12.0) sec INR (<1.2) APTT (22.0-30.0) sec Sodium (137-145) mmol/L Carbon Dioxide (22-30) mmol/L Creatinine (0.66-1.25) mg/dL Glucose (74-99) mg/dL Calcium (8.4-10.2) mg/dL Total Bilirubin (0.2-1.3) mg/dL AST (17-59) U/L Alkaline Phosphatase (38-126) U/L Albumin (3.5-5.0) g/dL Assessment and Plan Assessment: Partial loss of vision likely due to TIA -Symptoms have resolved -CT head negative for acute bleed -CTA head and neck negative for significant stenosis -Echocardiogram with bubble study pending -Check sed rate to rule out temporal arthritis. Low clinical suspicion since patient denies headache -We'll start patient on aspirin 81 mg daily. Monitor patient's hemoglobin closely due to recent GI bleed and history of esophageal varices -Check LDL level Sauer liver cirrhosis -Compensated -Resume home meds which include lactulose and rifaximin and torsemide -Follow-up outpatient with liver specialist at [facility] History of esophageal varices -Resume PPI and propanolol CODE STATUS:full code DVT prophylaxis: mechanical Discussed with: Patient, ER, rn Anticipated length of stay < than [address]: home A total of 75 minutes was spent on the care of this complex patient more than 50% of the time was spent in counseling and care coordination.
[2021-05-21] MEDS: ASPIRIN 81 MG PO SCH (17:56)
[2021-05-21] MEDS: LACTULOSE 20 GM/30 ML CUP PO SCH ×2 (17:56→20:24)
[2021-05-21] MEDS: SODIUM CHLORIDE 0.9% 1,000 ML IV SCH (19:06)
[2021-05-21] MEDS: FAMOTIDINE 20 MG TAB PO SCH (20:23)
[2021-05-21] MEDS: RIFAXIMIN 550 MG TABLET PO SCH (20:23)
[2021-05-21] MEDS: PROPRANOLOL 10 MG TAB PO SCH (20:23)
[2021-05-21] MEDS ORDERED: MONTELUKAST 10 MG TAB PO SCH (21:00)
[2021-05-21] MEDS ORDERED: TORSEMIDE PO SCH (21:00)
[2021-05-22] MEDS: SODIUM CHLORIDE 0.9% 1,000 ML IV SCH (05:03)
[2021-05-22] MEDS ORDERED: PANTOPRAZOLE 40 MG TABLET PO SCH (07:30)
[2021-05-22] MEDS ORDERED: CYANOCOBALAMIN 500 MCG TAB PO SCH (09:00)
[2021-05-22] MEDS ORDERED: CHOLECALCIFEROL 25 MCG (1000 IU) TABLET PO SCH (09:00)
[2021-05-22] MEDS ORDERED: FERROUS SULFATE 325 MG TAB PO SCH (09:00)
--- NOTE | 2021-05-22 09:02 | P.CNNES ---
History of Present Illness Consult date: 05/21/21 Requesting physician: Aneta Ryan Reason for Consult: transient vision loss History of Present Illness: Patient is a 70-year-old right-handed male who came to the hospital because of an episode of transient partial vision loss involving the left eye that happened yesterday at noon and lasted for about 4 hours. Patient states that at around noon he noticed that he was not able to see top half of the vision of the left eye. When he closes left eye, the right eyes was perfect. It only affected the left eye. He saw his primary care physician the same day, who recommended an outpatient 2-D echo and a carotid Doppler. He was seen by an eye doctor this morning who did not find any abnormality with his eyes, referred him to ER, as he wanted to check for signs of CVA. Patient's intraocular pressure was 19 as p er patient's recollection from the visit today. Patient denies any headache. 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 He has an appointment tomorrow with his liver transplant team. He wants to go home, so he can keep his appointment for the liver transplant. Patient states that he was diagnosed with hydrocephalus last year after an MRI. He was initially placed on Diamox, but had side effects, now patient is taking torsemide, but his blood pressure has been running so low that it was pulled from his prescription a week ago. Patient had a follow-up MRI of the brain performed at "[facility]" in [place], [place] on 04/06/2021. Patient denies any fever or chills, any jaw claudication. He does have hearing loss bilaterally and uses hearing aids. Patient denies diabetes no hypertension. Denies any tobacco or alcohol. Patient has slight short-term memory issues, but long-term memory is fine. Patient's believes the memory loss may be related to his peer elevated ammonia from cirrhosis. Patient has history of neck reconstruction surgery 6-7 years ago. He does have chronic neck pain, a lot of muscle tightness, nothing worse lately. Patient's blood tests shows no normal WBC, hemoglobin 8.4, platelets 107. PT is 17.2 INR 1.7 which is elevated, PTT is 31.2. Sodium 135 potassium 3.8, normal renal functions. AST is elevated 95 and ALT is normal 35. Ammonia is 28 normal. Troponin negative. UA negative. CT head showed no acute intracranial abnormality or space-occupying lesion. I personally reviewed CT head and agree with the findings. No evidence of hydrocephalus. CTA of head and neck showed no significant arterial stenosis, occlusion, dissection or other acute abnormality of the major neck or the intracranial arteries. Evidence of previous anterior fixation of C2 down to C5. Review of Systems As mentioned in detail in HPI. All other review of systems reviewed and unremarkable. Past Medical History Past Medical History: Hyperlipidemia, Liver Disease Additional Past Medical History / Comment(s): nonalcoholic liver cirrhosis, hydrocephalus History of Any Multi-Drug Resistant Organisms: None Reported Past Surgical History: Hernia Repair, Orthopedic Surgery Additional Past Surgical History / Comment(s): neck surgery Past Anesthesia/Blood Transfusion Reactions: No Reported Reaction Past Psychological History: No Psychological Hx Reported Smoking Status: Never smoker Past Alcohol Use History: None Reported Past Drug Use History: None Reported Medications and Allergies Home Medications Medication Instructions Recorded Confirmed Type Albuterol Inhaler [Ventolin Hfa 2 puff INHALATION RT-QID PRN 09/10/20 05/21/21 History Inhaler] Cholecalciferol [Vitamin D3 (25 25 mcg PO DAILY 09/10/20 05/21/21 History Mcg = 1000 Iu)] Montelukast [Singulair] 10 mg PO HS 09/10/20 05/21/21 History Lactulose 20 gm PO QID 05/01/21 05/21/21 History Rifaximin [Xifaxan] 550 mg PO BID 05/01/21 05/21/21 History Cyanocobalamin [Vitamin B-12] 500 mcg PO DAILY 05/21/21 05/21/21 History Famotidine [Pepcid] 20 mg PO BID 05/21/21 05/21/21 History Iron 45mg 45 mg PO DAILY 05/21/21 05/21/21 History Pantoprazole [Protonix] 40 mg PO DAILY 05/21/21 05/21/21 History Propranolol [Inderal] 10 mg PO BID 05/21/21 05/21/21 History Torsemide [Demadex] 2.5 mg PO BID 05/21/21 05/21/21 History Allergies Allergy/AdvReac Type Severity Reaction Status Date / Time ibuprofen Allergy Severe Anaphylaxis Verified 05/21/21 12:00 garlic Allergy Anaphylaxis Verified 05/21/21 12:00 Physical Examination - Vital Signs Vital Signs: Vital Signs Temp Pulse Pulse Pulse Resp BP BP 05/22/21 07:00 97.6 F 56 L 16 92/55 05/22/21 01:25 97.5 F L 71 18 92/55 05/21/21 19:25 97.6 F 83 20 102/63 05/21/21 17:16 97.5 F L 75 18 121/74 05/21/21 15:45 68 16 100/64 05/21/21 10:32 98.8 F 86 18 116/62 Pulse Ox 05/22/21 07:00 93 L 05/22/21 01:25 96 05/21/21 19:25 96 05/21/21 17:16 96 05/21/21 15:45 98 05/21/21 10:32 98 Intake and Output 05/21/21 05/22/21 05/22/21 22:59 06:59 14:59 Other: # Voids 1 2 Weight 92.986 kg Patient is an elderly male, in no acute distress. Patient is alert awake oriented to time place and person. Speech and language functions are normal. Attention, concentration and fund of knowledge is adequate. On cranial examination, pupils are equal, round and reacting to light, visual espinoza are full on all 9 quadrants on confrontation, with no neglect on double simultaneous stimulation. extraocular muscles are intact with no nystagmus. Face is symmetric, tongue protrudes to the midline. Palatal elevation and sensation normal, hearing is decreasing he uses hearing aids and shoulder shrug normal, facial sensation normal. Shoulder shrug normal. On muscle strength testing, there is no pronator drift and the strength is normal in arms and legs distally and proximally. Deep tendon reflexes are (right/left brachial closed biceps 1/1, brachioradialis 0 says 0, no activities are very diminished. plantars are downgoing bilaterally. Sensory to touch is equal with no neglect. Cerebellar function showed no ataxia for [id number] testing. No dysdiadochokinesia. Tone and bulk of muscles normal. Gait normal. On general examination, there is no carotid bruit or murmur, S1-S2 audible. Abdomen is soft nontender. Bowel sounds present. No definitive organomegaly. Chest is clear. Peripheral pulses are present. No edema. Results - Laboratory Findings CBC and BMP: 05/21/21 11:16 05/21/21 11:16 Abnormal Lab Findings: Abnormal Labs 05/21/21 05/21/21 05/21/21 11:16 11:16 11:16 RBC 2.98 L Hgb 8.4 L Hct 26.5 L RDW 16.3 H Plt Count 107 L ESR PT 17.2 H INR 1.7 H APTT 31.2 H Sodium 135 L Carbon Dioxide 21 L Creatinine 0.57 L Glucose 101 H Calcium 8.0 L Total Bilirubin 2.2 H AST 95 H Alkaline Phosphatase 150 H Albumin 2.8 L 05/21/21 15:44 RBC Hgb Hct RDW Plt Count ESR 25 H PT INR APTT Sodium Carbon Dioxide Creatinine Glucose Calcium Total Bilirubin AST Alkaline Phosphatase Albumin Assessment and Plan Assessment: * Transient vision loss, involving the left eye, only involving upper altitudinal visual field, lasted for 4 hours. The symptoms have completely resolved. * Nonalcoholic cirrhosis. * Reported history of hydrocephalus. On my review of current computed tomography scan, and previous MRI, there is no evidence of hydrocephalus at all. Plan: * Patient's CTA of head and neck are normal. * 2-D echo with bubble study to rule out PFO. * ESR, CRP * Hemoglobin A1c, fasting lipid panel. * Start aspirin 81 mg daily (if okay from a hepatology standpoint). * Neurologically clear, if ESR and CRP are normal. I can follow up 2-D echo as an outpatient. * Recommend discontinue torsemide, as there is no hydrocephalus. I will review MRI and CT with the radiologist as well. * Discussed case with ED staff. Thank you for the consult.
[2021-05-22] MEDS: PROPRANOLOL 10 MG TAB PO SCH (10:38)
[2021-05-22] MEDS: FAMOTIDINE 20 MG TAB PO SCH (10:38)
[2021-05-22] MEDS: LACTULOSE 20 GM/30 ML CUP PO SCH ×2 (10:38→14:34)
[2021-05-22] MEDS: ASPIRIN 81 MG PO SCH (10:40)
[2021-05-22] MEDS: RIFAXIMIN 550 MG TABLET PO SCH (10:40)
--- NOTE | 2021-05-22 10:47 | P.PN ---
Subjective Progress Note Date: 05/22/21 Patient was seen for a follow-up. Doing fine. No further neurological symptoms. Vision is back to normal. No headache. Objective - Vital Signs Vital signs: Vital Signs Temp 97.6 F 05/22/21 07:00 Pulse 56 L 05/22/21 08:00 Resp 16 05/22/21 07:00 BP 92/55 05/22/21 07:00 Pulse Ox 93 L 05/22/21 07:00 Intake & Output 05/21/21 05/22/21 05/22/21 18:59 06:59 18:59 Intake Total 118 Balance 118 Weight 92.986 kg Intake: Oral 118 Other: # Voids 2 - Exam Examination completely unchanged. - Labs CBC & Chem 7: 05/22/21 11:21 05/21/21 11:16 Labs: Abnormal Lab Results - Last 24 Hours (Table) 05/21/21 05/21/21 05/21/21 Range/Units 11:16 11:16 11:16 RBC 2.98 L (4.30-5.90) m/uL Hgb 8.4 L (13.0-17.5) gm/dL Hct 26.5 L (39.0-53.0) % RDW 16.3 H (11.5-15.5) % Plt Count 107 L (150-450) k/uL ESR (0-15) mm/hr PT 17.2 H (9.0-12.0) sec INR 1.7 H (<1.2) APTT 31.2 H (22.0-30.0) sec Sodium 135 L (137-145) mmol/L Carbon Dioxide 21 L (22-30) mmol/L Creatinine 0.57 L (0.66-1.25) mg/dL Glucose 101 H (74-99) mg/dL Calcium 8.0 L (8.4-10.2) mg/dL Total Bilirubin 2.2 H (0.2-1.3) mg/dL AST 95 H (17-59) U/L Alkaline Phosphatase 150 H (38-126) U/L Albumin 2.8 L (3.5-5.0) g/dL 05/21/21 Range/Units 15:44 RBC (4.30-5.90) m/uL Hgb (13.0-17.5) gm/dL Hct (39.0-53.0) % RDW (11.5-15.5) % Plt Count (150-450) k/uL ESR 25 H (0-15) mm/hr PT (9.0-12.0) sec INR (<1.2) APTT (22.0-30.0) sec Sodium (137-145) mmol/L Carbon Dioxide (22-30) mmol/L Creatinine (0.66-1.25) mg/dL Glucose (74-99) mg/dL Calcium (8.4-10.2) mg/dL Total Bilirubin (0.2-1.3) mg/dL AST (17-59) U/L Alkaline Phosphatase (38-126) U/L Albumin (3.5-5.0) g/dL Assessment and Plan Assessment: * Transient monocular vision loss, left eye, only involving upper altitudinal visual field, lasted for 4 hours. The symptoms have completely resolved. * Nonalcoholic cirrhosis. * Reported history of hydrocephalus. On my review of current computed tomography scan, and previous MRI, there is no evidence of hydrocephalus at all. Plan: * CTA of head and neck are normal. * 2-D echo with bubble study has been completed, report still pending. * ESR borderline 25, CRP normal 0.8 * Hemoglobin A1c normal 4.7 * Fasting lipid panel with cholesterol 150, LDL 74, HDL 35 and triglycerides 205. Lipids are fairly well controlled. Avoid statins because of cirrhosis. * Patient needs clearance from GI/hepatology regarding safety of aspirin 81 mg. Patient has history of GI bleed. Also has cirrhosis with borderline platelets. * I reviewed patient's current computed tomography scan and MRI with Dr. Pappas. There is no hydrocephalus. * I also obtained patient's recent MRI of the brain with and without contrast from 04/06/2021 from [facility]. It reported as stable minimal prominence of the right and left lateral ventricle with no third or fourth ventricular dilation. No enhancing lesion or acute ischemia. There is some persistent subtle fluid demonstrated around the optic sheaths, slightly less than previous. Patient has no headache, no signs of pseudotumor cerebri. * Neurologically clear, if the 2-D echo comes back normal.
[2021-05-22 12:11] LABS: HCT 28.5 % (39.0-53.0); HGB 8.4 gm/dL (13.0-17.5); Hypochromasia Marked; MCH 27.1 pg (25.0-35.0); MCHC 29.5 g/dL (31.0-37.0); MCV 92.1 fL (80.0-100.0); Mean Platelet Volume 10.7; Platelet Count 103 k/uL (150-450); Poikilocytosis Slight; RBC 3.09 m/uL (4.30-5.90); WBC 3.8 k/uL (3.8-10.6)
[2021-05-22 14:20] VITALS: BP 93/57; PULSE 73; RESP 18; TEMP 97.5
--- NOTE | 2021-05-22 16:00 | P.DS ---
Providers Date of admission: 05/21/21 16:27 Expected date of discharge: 05/22/21 Attending physician: Farideh Kellogg DO Consults: 05/21/21 16:17 Consult Physician Stat Consulting Provider: Venecia Aggarwal Consult Reason/Comments: transient vision loss Do you want consulting provider notified?: Yes, Notify in am Primary care physician: Sunday Bhatt Hospital Course: Discharge Diagnosis: Left eye vision loss likely due to TIA Sauer liver cirrhosis Esophageal varices and gastric varices History of hepatic encephalopathy Hospital Course: Patient is a 70-year-old male with a past medical history of Sauer cirrhosis with esophageal varices and gastric varices were follows up at [facility] with Dr. Dunn who presents to the ED with loss in the upper field of his left eye that lasted for 4 hours. Prior to coming into the ED patient was evaluated by comber operator who ruled out retinal detachment and recommended patient to come to the ED to rule out stroke. Patient was evaluated by neurology. He had a CT head and CTA head and neck that were unremarkable. Neurology clear patient for discharge. Patient's echocardiogram with bubble study is pending. Per neurology they will follow-up on this as outpatient. 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 Also unable to start patient on statin due to liver cirrhosis. Patient's hemoglobin A1c was 4.7. Patient blood pressure was on the low side so I will discontinue his propranolol. Patient instructed to follow-up with neurology. Of note neurology reviewed patient's previous MRI and CT head with the radiologist and there is no evidence of hydrocephalus. Per neurology no need for torsemide due to hydrocephalus. I will resume it as a diuretic for his liver cirrhosis to prevent ascites. Patient seen and examined at bedside.[] Vital signs reviewed and stable. General: [non toxic], [no distress], [appears at stated age] Derm: [warm], [dry] Head: [atraumatic], [normocephalic], [symmetric] Eyes: [EOMI], [no lid lag], [anicteric sclera] Mouth: [no lip lesion], [mucus membranes moist] Cardiovascular: [S1S2 reg], [no murmur], [positive posterior tibial pulse bilateral], Lungs: [CTA bilateral], [no rhonchi, no rales] , [no accessory muscle use] Abdominal: [soft], [ nontender to palpation], [no guarding], [no appreciable organomegaly] Ext: [no gross muscle atrophy], [no edema], [no contractures] Neuro: [ CN II-XI grossly intact], [no focal neuro deficits] Psych: [Alert], [oriented], [appropriate affect] A total of [33] minutes of time were spent preparing this complex discharge summary . Patient Condition at Discharge: Good Plan - Discharge Summary Discharge Rx Participant: Yes New Discharge Prescriptions: Continue Cholecalciferol [Vitamin D3 (25 Mcg = 1000 Iu)] 25 mcg PO DAILY Torsemide [Demadex] 2.5 mg PO BID Cyanocobalamin [Vitamin B-12] 500 mcg PO DAILY Famotidine [Pepcid] 20 mg PO BID Montelukast [Singulair] 10 mg PO HS Albuterol Inhaler [Ventolin Hfa Inhaler] 2 puff INHALATION RT-QID PRN PRN Reason: Shortness Of Breath Rifaximin [Xifaxan] 550 mg PO BID Lactulose 20 gm PO QID Pantoprazole [Protonix] 40 mg PO DAILY Iron 45mg 45 mg PO DAILY Discontinued Propranolol [Inderal] 10 mg PO BID Discharge Medication List Albuterol Inhaler [Ventolin Hfa Inhaler] 2 puff INHALATION RT-QID PRN 09/10/20 [History] Cholecalciferol [Vitamin D3 (25 Mcg = 1000 Iu)] 25 mcg PO DAILY 09/10/20 [History] Montelukast [Singulair] 10 mg PO HS 09/10/20 [History] Lactulose 20 gm PO QID 05/01/21 [History] Rifaximin [Xifaxan] 550 mg PO BID 05/01/21 [History] Cyanocobalamin [Vitamin B-12] 500 mcg PO DAILY 05/21/21 [History] Famotidine [Pepcid] 20 mg PO BID 05/21/21 [History] Iron 45mg 45 mg PO DAILY 05/21/21 [History] Pantoprazole [Protonix] 40 mg PO DAILY 05/21/21 [History] Torsemide [Demadex] 2.5 mg PO BID 05/21/21 [History] Follow up Appointment(s)/Referral(s): Sunday Bhatt MD [Primary Care Provider] - 1-2 days Venecia Aggarwal MD [STAFF PHYSICIAN] - 1 Week Discharge Disposition: HOME SELF-CARE
[2021-05-22 18:11] LABS: Chol/HDL Ratio 4.29 Ratio
[2021-05-22] MEDS ORDERED: FUROSEMIDE 10 MG TAB PO SCH (21:00)
--- NOTE | 2021-06-02 08:58 | ECHOF ---
Referral Reason:TIA MEASUREMENTS -------- HEIGHT: 177.8 cm WEIGHT: 93.0 kg BP: 116/62 RVIDd: 3.6 cm (< 3.3) IVSd: 1.4 cm (0.6 - 1.1) LVIDd: 5.3 cm (3.9 - 5.3) LVPWd: 1.3 cm (0.6 - 1.1) IVSs: 1.7 cm LVIDs: 3.6 cm LVPWs: 1.7 cm LA Diam: 3.6 cm (2.7 - 3.8) Ao Diam: 4.3 cm (2.0 - 3.7) AV Cusp: 2.7 cm (1.5 - 2.6) MV EXCURSION: 12.538 mm (> 18.000) MV EF SLOPE: 50 mm/s (70 - 150) EPSS: 1.6 cm MV E Jeremy: 0.91 m/s MV DecT: 319 ms MV A Jeremy: 1.08 m/s MV E/A Ratio: 0.84 RAP: 5.00 mmHg RVSP: 20.59 mmHg FINDINGS -------- Sinus rhythm. This was a technically adequate study. The left ventricular size is normal. There is moderate concentric left ventricular hypertrophy. O verall left ventricular systolic function is normal with, an EF between 60 - 65 %. The right ventricle is mildly enlarged. The left atrium is normal in size. The right atrium is normal in size. Contrast study was performed with 2 iv injections of 8 ccs of agitated normal saline, at rest, and wi th cough. Negative saline bubbles study. No shunt noted Trace amount of aortic regurgitation. The mitral valve is normal. Trace tricuspid regurgitation present. Right ventricular systolic pressure is normal at < 35 mmHg. The pulmonic valve is normal. The aortic root is dilated measuring 4.3cm. Normal inferior vena cava with normal inspiratory collapse consistent with estimated right atrial pre ssure of 5 mmHg. There is no pericardial effusion. CONCLUSIONS -------- 1. The left ventricular size is normal. 2. There is moderate concentric left ventricular hypertrophy. 3. Overall left ventricular systolic function is normal with, an EF between 60 - 65 %. 4. The right ventricle is mildly enlarged. 5. Contrast study was performed with 2 iv injections of 8 ccs of agitated normal saline, at rest, and with cough. 6. Negative saline bubbles study. No shunt noted 7. Trace amount of aortic regurgitation. 8. Trace tricuspid regurgitation present. 9. The aortic root is dilated measuring 4.3cm. 10. There is no pericardial effusion. FAMILY SOCIOLOGIST: Priya English RDCS
== END 2021-05-22 16:33 | disposition home or self-care (01) ==
LOC: EC 10:31 → 6NMEDSUR 16:27
PROVIDERS: ADMIT Internal Medicine; ATTEND Internal Medicine
DX: H53.122 Transient visual loss, left eye (principal); K75.81 Nonalcoholic steatohepatitis (NASH); K74.60 Unspecified cirrhosis of liver; I85.10 Secondary esophageal varices without bleeding; I86.4 Gastric varices; K72.90 Hepatic failure, unspecified without coma; E78.5 Hyperlipidemia, unspecified; H91.93 Unspecified hearing loss, bilateral; Z97.4 Presence of external hearing-aid; G89.29 Other chronic pain; M54.2 Cervicalgia; Z87.19 Personal history of other diseases of the digestive system; Z79.899 Other long term (current) drug therapy; Z88.8 Allergy status to other drugs, medicaments and biological substances; Z91.018 Allergy to other foods; Z71.9 Counseling, unspecified
CPT/HCPCS: 96361 ×3; 96360; 99285; 36415; 93005; 93306; 80061; 80053; 85652; 82140; 84484; 85025; 85027; 85610; 85730; 86140; 81003; 83036; 71046; 70496; 70450; 70498; G0378 ×2; Q9967